=== PATIENT | male | born 1980 | race Caucasian/White ===

== ENCOUNTER 2017-08-20 22:13 | Emergency (ER) | payer MEDICAID, SELFPAY ==
[2017-08-20 22:14] VITALS: BP 151/109; PULSE 142; RESP 18; TEMP 36.9; O2SAT 100; BMI 25.0
--- NOTE | 2017-08-20 22:34 | ED.RN ---
PT LEFT BUILDING, PT HAD CONFUSION, WAS TEARFUL, AND CRYING THAT HE DIDN'T KNOW WHY HE WAS HERE. PT AMBULATED BACK INTO BUILDING.
== END 2017-08-20 22:26 | disposition left against medical advice (07) ==
LOC: ED 22:29
PROVIDERS: Emergency Provider Emergency Medicine
DX: R51 Headache (principal); K08.89 Other specified disorders of teeth and supporting structures

== ENCOUNTER 2017-08-23 14:20 | Emergency (ER) | payer MEDICAID, SELFPAY ==
[2017-08-23 14:20] VITALS: BP 127/93; PULSE 121; RESP 18; TEMP 37.5; O2SAT 97; BMI 25.9
--- NOTE | 2017-08-23 15:28 | ED.VISSUMM ---
- ER Visit Summary Date of Service: 08/23/17 Chief Complaint: Left upper teeth pain and facial swelling History of Present Illness: The patient is a 37 M who presents emergency part with left upper teeth pain and facial swelling. He states this started several days ago. He presented to the emergency department last week however lap because of delay. He denies fever, chills night sweats. He complains of blurred vision and purulent/pus draining from his eye. He denies double vision, loss of vision or photophobia. He denies pain with movement of his eye. He denies rhinorrhea. Denies earache or sore throat. He does complain of headache. Denies any neck pain or neck stiffness. He has no history rheumatic fever, murmur, SBE, IV drug use to be an immune suppressed. He denies any skin lesions. He recently relocated to the area for employment. He does have a physician or dentist in the area. He does admit to smoking and drinking. Denies drugs. Physical Examination: Vital signs remarkable for blood pressure 127/93 and heart rate 121. He appears uncomfortable. There is left-sided facial swelling over the left maxillary region. There is pain to palpation. Pupils equal round reactive. Extra muscles intact. Sclerae anicteric. Conjunctive is not injected. There is no drainage from the duct. There is no swelling to suggest a dacryocystitis. TMs are normal. Posterior pharynx without erythema XA. Uvula midline. He has significant dental caries. There is discomfort with tapping of the second left upper bicuspid and first left upper molar. There is no trismus. Trachea is midline. There is no stridor. Heart is regular without murmur, gallop or rub. S1 and S2 are normal. Lungs are clear to auscultation with good movement of air bilaterally. There are no skin lesions noted. There are no splinter hemorrhages noted. Test Results: None were obtained Emergency Department Course and Treatment: Dental referral, prescription for clindamycin, Naprosyn and [place]. He received doses of each in the department prior to discharge Treatment Plan: Outpatient follow-up with dentist Disposition: Discharge to home Impression: 1. Dental abscess 2. Dental caries involving the dentin and pulp 3. Sinus tachycardia documented on monitor This note was generated with [employer] software. It may contain incorrect words, spelling, and punctuation that were not noted in review of the chart prior to signing ED Disposition - Plan for ED Patient: Disposition: Home or Assisted Living Chief Complaint: Dental Instructions: ED Cavity Dental, ED Abscess Dental Prescriptions: Hydrocodone Bitart/Apap 5-325 [[place] 5MG-325MG] 1 tablet PO Q6H PRN PRN 3 Days #10 tablet PRN Reason: Pain Naproxen [Naprosyn] 500 mg PO BID #14 tab Clindamycin HCl [Cleocin] 300 mg PO Q6H #40 cap Referrals: Care Physician,No Primary [Primary Care Provider] - Additional Instructions: Prescription was electronically transmitted to [facility]
[2017-08-23] MEDS: HYDROcodone Bitartrate/Apap 5/325 Tablet PO (15:36)
[2017-08-23] MEDS: Clindamycin HCl 150 MG Capsule 300 MG PO (15:36)
--- NOTE | 2017-08-23 15:37 | ED.DCSUM_ITS ---
- ER Visit Summary Date of Service: 08/23/17 Chief Complaint: Left upper teeth pain and facial swelling History of Present Illness: The patient is a 37 M who presents emergency part with left upper teeth pain and facial swelling. He states this started several days ago. He presented to the emergency department last week however lap because of delay. He denies fever, chills night sweats. He complains of blurred vision and purulent/pus draining from his eye. He denies double vision , loss of vision or photophobia. He denies pain with movement of his eye. He denies rhinorrhea. Denies earache or sore throat. He does complain of headache. Denies any neck pain or neck stiffness. He has no history rheumatic fever, murmur, SBE, IV drug use to be an immune suppressed. He denies any skin lesions. He recently relocated to the area for employment. He does have a physician or dentist in the area. He does admit to smoking and drinking. Denies drugs. Physical Examination: Vital signs remarkable for blood pressure 127/93 and heart rate 121. He appears uncomfortable. There is left-sided facial swelling over the left maxillary region. There is pain to palpation. Pupils equal round reactive. Extra muscles intact. Sclerae anicteric. Conjunctive is not injected. There is no drainage from the duct. There is no swelling to suggest a dacryocystitis. TMs are normal. Posterior pharynx without erythema XA. Uvula midline. He has significant dental caries. There is discomfort with tapping of the second left upper bicuspid and first left upper molar. There is no trismus. Trachea is midline. There is no stridor. Heart is regular without murmur, gallop or rub. S1 and S2 are normal. Lungs are clear to auscultation with good movement of air bilaterally. There are no skin lesions noted. There are no splinter hemorrhages noted. Test Results: None were obtained Emergency Department Course and Treatment: Dental referral, prescription for clindamycin, Naprosyn and [place]. He received doses of each in the department prior to discharge Treatment Plan: Outpatient follow-up with dentist Disposition: Discharge to home Impression: 1. Dental abscess 2. Dental caries involving the dentin and pulp 3. Sinus tachycardia documented on monitor This note was generated with [employer] software. It may contain incorrect words, spelling, and punctuation that were not noted in review of the chart prior to signing ED Disposition - Plan for ED Patient: Disposition: Home or Assisted Living Chief Complaint: Dental Instructions: ED Cavity Dental, ED Abscess Dental Prescriptions: Hydrocodone Bitart/Apap 5-325 [[place] 5MG-325MG] 1 tablet PO Q6H PRN PRN 3 Days # 10 tablet PRN Reason: Pain Naproxen [Naprosyn] 500 mg PO BID #14 tab Clindamycin HCl [Cleocin] 300 mg PO Q6H #40 cap Referrals: Care Physician,No Primary [Primary Care Provider] - Additional Instructions: Prescription was electronically transmitted to [facility]
[2017-08-23 15:41] VITALS: PULSE 88; RESP 16
== END 2017-08-23 15:53 | disposition home or self-care (01) ==
PROVIDERS: Emergency Provider Emergency Medicine
DX: K04.7 Periapical abscess without sinus (principal); K02.9 Dental caries, unspecified; R00.0 Tachycardia, unspecified; F17.200 Nicotine dependence, unspecified, uncomplicated; K08.89 Other specified disorders of teeth and supporting structures
CPT/HCPCS: 99283

== ENCOUNTER 2017-08-24 07:36 | Emergency (ER) | payer MEDICAID, SELFPAY ==
[2017-08-24 07:37] VITALS: BP 149/103; PULSE 78; RESP 16; TEMP 36.5; O2SAT 100; BMI 25.7
--- NOTE | 2017-08-24 07:56 | RAD_ITS ---
STUDY: X-RAY - ACUTE ABDOMINAL SERIES REASON FOR EXAM: Male, 37 years old. Right-sided abdominal pain. TECHNIQUE: Single view of the chest. Supine, and erect view(s) of the abdomen were obtained. COMPARISON: None. FINDINGS: The lungs are clear and expanded. Normal size heart. Normal mediastinum and logan. Normal visualized pulmonary arteries. Normal visualized aortic arch and descending thoracic aorta. There is a moderate amount of colonic fecal material. Mild splenomegaly with calcified splenic granulomas. Mild hepatomegaly. Normal visualized osseous structures. RAD/Acute Abdomen Inc Chest IMPRESSION: A moderate amount of fecal material is seen in the colon. Mild splenomegaly with the calcified splenic granulomas. Hepatomegaly. Electronically Signed: Leonel Liu MD at 8:41 EDT Tel [phone], Service support ,
--- NOTE | 2017-08-24 09:03 | ED.DCSUM_ITS ---
- ER Visit Summary Date of Service: 08/24/17 Chief Complaint: Abdominal pain History of Present Illness: The patient is a 37 M who presents complaining of epigastric pain and spasm. Patient states he took naproxen and clindamycin at 6 AM this morning. Shortly after this he developed pain in the epigastric area. He states he did eat a granola bar with the medications. He has had these medications before with no problem. Patient has a history of 3 ventral hernia repairs. He states that he will intermittently feel a bulge above where his mesh is. Physical Examination: Vital signs are unremarkable. Head and neck examination is unremarkable. Heart is regular rate and rhythm. Lung sounds are clear. Abdomen is soft with focal tenderness over the epigastrium. There are no palpable hernias on exam. He has active bowel sounds. Test Results: Acute abdominal series reveals moderate fecal material in the colon. There is mild splenomegaly. Hepatomegaly is noted. Emergency Department Course and Treatment: Patient is given a GI cocktail. On repeat evaluation, patient reports mild improvement. He states he almost has cramping now as if he needs to have a bowel movement. He will be given prescriptions for Prilosec and Bentyl. He is instructed to eat with his medications. He will be referred to surgery for outpatient follow-up of this possible hernia. Treatment Plan: [] Disposition: Discharge Impression: Epigastric pain This note was generated with [employer] dictation software. It may contain incorrect words, spelling, and punctuation that were not noted in review of the chart prior to signing ED Disposition - Plan for ED Patient: Chief Complaint: Abd Pain Referrals: Care Physician,No Primary [Primary Care Provider] -
--- NOTE | 2017-08-24 09:04 | ED.DEP ---
ED Disposition - Plan for ED Patient: Disposition: Home or Assisted Living Chief Complaint: Abd Pain Instructions: ED Epigastric Pain [facility] Prescriptions: Dicyclomine HCl [Bentyl] 20 mg PO TIDAC #20 capsule Omeprazole [Prilosec] 20 mg PO DAILY #14 capsule Referrals: Kallie Farias MD [STAFF PHYSICIAN] - As Needed
[2017-08-24] MEDS: Famotidine 20 MG Tablet 40 MG PO (09:14)
[2017-08-24] MEDS: Dicyclomine 10 MG Capsule 20 MG PO (09:14)
== END 2017-08-24 09:16 | disposition home or self-care (01) ==
PROVIDERS: Emergency Provider Emergency Medicine
DX: R10.13 Epigastric pain (principal); R16.2 Hepatomegaly with splenomegaly, not elsewhere classified; K63.9 Disease of intestine, unspecified; G89.29 Other chronic pain; Z79.899 Other long term (current) drug therapy; F12.90 Cannabis use, unspecified, uncomplicated; Z72.0 Tobacco use
CPT/HCPCS: 74022

== ENCOUNTER 2017-08-24 14:55 | Emergency (ER) | payer MEDICAID, SELFPAY ==
[2017-08-24 14:56] VITALS: BP 125/84; PULSE 100; RESP 18; TEMP 37.1; O2SAT 100; BMI 25.7
--- NOTE | 2017-08-24 16:12 | ED.VISSUMM ---
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 Reports that after the initial dose he had epigastric abdominal pain. It worsened this morning approximately an hour and 10 minutes after taking a dose of clindamycin with a granola bar. States is been a constant waxing and waning pain since that time. He describes it as aching. Senna 10 worsening a 10 currently. Is worsened by leaning over. It is improved by straightening out. He has had nausea without vomiting. No diarrhea. His last problem was today. No melena or hematochezia. No dysuria or frequency. Physical Examination: Vitals: Stable. Afebrile. General: Well-nourished and well-developed. Head: Normocephalic atraumatic. Neck: Supple, no lymphadenopathy. No JVD. Nontender. Cardiovascular: Regular rate and rhythm. No murmurs. Respiratory: No respiratory distress. Clear to auscultation bilaterally. Abdominal: Soft, moderate epigastric tenderness to palpation, nondistended, normal bowel sounds. No guarding, rebound, or peritoneal signs. Back: Nontender. Extremities: Nontender, no edema. Skin: Normal color, no rash. Neurologic: Alert and oriented ?3. Cranial nerves II through XII are intact. Normal strength and sensation. Psych: Normal affect. Test Results: CBC is normal. Chem-7 is normal. LFTs are remarkable for an ALT of 182 and AST of 159. Lipase is normal. Emergency Department Course and Treatment: Patient had an IV placed. He was given a liter bolus normal saline. He was given Toradol and Zofran IV. He is resting comfortably. Treatment Plan: Patient will be discharged with Zofran. And instructed to switch from clindamycin to penicillin. [facility] in 1-2 days not improving. Disposition: To home in improved and stable condition. Impression: 1. Adverse reaction to clindamycin. 2. Elevated AST/ALT. 3. History of hepatitis C. This note was generated with [employer] software. It may contain incorrect words, spelling, and punctuation that were not noted in review of the chart prior to signing ED Disposition - Plan for ED Patient: Disposition: Home or Assisted Living Chief Complaint: Abd Pain Instructions: ED Drug React Adverse Other Prescriptions: Ondansetron [Zofran Odt] 4 mg PO Q8H PRN PRN #10 tablet PRN Reason: Nausea Penicillin V Potassium 500 mg PO 4X/DAY #40 tablet Referrals: Christi Manuel [NON-STAFF] - 1-2 Days if not improving
[2017-08-24] MEDS: 0.9% Normal Saline 1,000 ML 1000 ML IV (16:41)
[2017-08-24] MEDS: Ondansetron 4 MG/2 ML Vial IV (16:41)
[2017-08-24 16:56] LABS: Absolute Lymphocyte Count 1.19 X10^3/ul (0.83-4.51); Absolute Neutrophil Count 3.9 X10^3/uL (2.0-7.7); Basophil# 0.03 X10^3/uL; Basophil% 0.5 % (0-1); Eosinophil# 0.28 X10^3/uL; Eosinophils% 4.7 % (0-5); Hematocrit 43.4 % (40-54); Hemoglobin 15.2 g/dl (13.0-16.5); Lymphocyte # 1.19 X10^3/ul (4.0); Mean Corpuscular Hgb 33.3 pg (27.0-32.0); Mean Corpuscular Volume 95.2 fL (80-94); Mean Platelet Vol. 8.7 fl (6.2-12.0); Monocyte# 0.59 X10^3/uL; Monocyte% 9.9 % (0-10); Neutrophil # 3.85 X10^3/uL (2.7-7.7); Neutrophil % 64.9 % (47-70); POSITIVE COUNT NO; POSITIVE DIFFERENTIAL NO; POSITIVE MORPHOLOGY NO; Platelet Count 163 K/mm3 (150-450); RBC Distribution Width CV 13.7 % (11.6-14.6); RBC Distribution Width SD 47.7 fl (35.1-43.9); Red Blood Count 4.56 M/mm3 (4.6-6.2); White Blood Count 5.9 K/mm3 (4.4-11.0)
[2017-08-24 17:18] LABS: AST(SGOT) 159 U/L (15-37); Alanine Aminotransfer ALT/SGPT 182 U/L (16-61); Albumin, Serum 3.8 g/dL (3.2-5.0); Alkaline Phosphatase 51 U/L (45-117); Anion Gap 11 (5-15); BUN 7 mg/dL (7-18); BUN/Creat Ratio 8.3 RATIO (10-20); Bilirubin, Direct 0.17 mg/dL (0.00-0.30); Calcium,Total 8.5 mg/dL (8.5-10.1); Chloride 105 mmol/L (98-107); Creatinine, Serum 0.84 mg/dL (0.70-1.30); EST Glomerular Filtration Rate 109 mL/min (>60); Est Glom Filt Rate - Afr Amer 132 mL/min (>60); Estimated Creatinine Clearance 100.82 ml/min; Globulin 3.7 g/dL (2.2-4.2); Glucose 86 mg/dL (74-106); Lipase 201 U/L (73-393); Potassium 3.7 mmol/L (3.5-5.1); Protein, Total 7.5 g/dL (6.4-8.2); Sodium Level 143 mmol/L (136-145)
[2017-08-24] MEDS: Ketorolac 30 MG/ML Syringe IV (17:27)
[2017-08-24 17:52] VITALS: RESP 16
--- NOTE | 2017-08-24 17:53 | ED.RN ---
PT REFUSED TO LET THIS RN CHECK VITAL SIGNS. REVIEWED D/C INSTRUCTIONS, FOLLOW UP CARE, PRESCRIPTION, AND S/S THAT WOULD WARRANT A RETURN TO THE ED WITH PT. PT VERBALIZED AN UNDERSTANDING AND DENIES FURTHER QUESTIONS FOR THIS RN. PT SKIN P/W/D, RESP EVEN AND UNLABORED, PT A&O X 3, NO DISTRESS NOTED. PT AMBULATED OUT OF ED, GAIT STEADY.
== END 2017-08-24 17:54 | disposition home or self-care (01) ==
PROVIDERS: Emergency Provider Emergency Medicine
DX: R10.13 Epigastric pain (principal); R11.0 Nausea; R51 Headache; T36.8X5A Adverse effect of other systemic antibiotics, initial encounter; Y92.9 Unspecified place or not applicable; R74.0 Nonspecific elevation of levels of transaminase and lactic acid dehydrogenase [LDH]; Z86.19 Personal history of other infectious and parasitic diseases; K04.7 Periapical abscess without sinus; K57.30 Diverticulosis of large intestine without perforation or abscess without bleeding; F17.200 Nicotine dependence, unspecified, uncomplicated; Z79.899 Other long term (current) drug therapy; R16.2 Hepatomegaly with splenomegaly, not elsewhere classified; K63.9 Disease of intestine, unspecified; G89.29 Other chronic pain; F12.90 Cannabis use, unspecified, uncomplicated
CPT/HCPCS: 74022; 80048; 80076; 83690; 85025; 96361; 96374; 96375; 99283; J7030

== ENCOUNTER 2017-09-01 00:20 | Emergency (ER) | payer MEDICAID, SELFPAY ==
--- NOTE | 2017-09-01 00:20 | DT_ITS ---
This patient was seen during an EMR downtime August 30, 2017 - September 06, 2017. This patient may have a combination of paper and electronic documentation or all paper documentation. All documentation is viewable within the e-chart portion of [facility] for each patient visit.
[2017-09-04 07:24] LABS: Glucose 116 mg/dL (74-106)
[2017-09-04 07:25] LABS: Anion Gap 5 (5-15); BUN 7 mg/dL (7-18); BUN/Creat Ratio 9.1 RATIO (10-20); Calcium,Total 9.3 mg/dL (8.5-10.1); Chloride 101 mmol/L (98-107); Creatinine, Serum 0.77 mg/dL (0.70-1.30); EST Glomerular Filtration Rate 121 mL/min (>60); Est Glom Filt Rate - Afr Amer 147 mL/min (>60); Lipase 165 U/L (73-393); Sodium Level 136 mmol/L (136-145)
[2017-09-04 10:40] LABS: Basophil% 0.3 % (0-1); Eosinophils% 2.5 % (0-5); Hematocrit 46.3 % (40-54); Hemoglobin 16.8 g/dl (13.0-16.5); Mean Corp Hgb Conc 36.3 g/gl (32-36); Mean Corpuscular Volume 93.7 fL (80-94); Mean Platelet Vol. 8.8 fl (6.2-12.0); POSITIVE COUNT NO; POSITIVE DIFFERENTIAL NO; POSITIVE MORPHOLOGY NO; Platelet Count 130 K/mm3 (150-450); RBC Distribution Width CV 13.1 % (11.6-14.6); RBC Distribution Width SD 44.7 fl (35.1-43.9); Red Blood Count 4.94 M/mm3 (4.6-6.2); White Blood Count 9.6 K/mm3 (4.4-11.0)
[2017-09-04 10:41] LABS: Absolute Lymphocyte Count 1.53 X10^3/ul (0.83-4.51); Absolute Neutrophil Count 6.9 X10^3/uL (2.0-7.7); Basophil# 0.03 X10^3/uL; Eosinophil# 0.24 X10^3/uL; Lymphocyte # 1.53 X10^3/ul (4.0); Monocyte# 0.86 X10^3/uL
== END 2017-09-02 02:15 | disposition home or self-care (01) ==
LOC: ED 09-02 15:52
PROVIDERS: Emergency Provider Emergency Medicine
DX: R10.9 Unspecified abdominal pain (principal); Z87.19 Personal history of other diseases of the digestive system; Z59.0 Homelessness
CPT/HCPCS: 36415; 80048; 83690; 85025; 99282

== ENCOUNTER 2017-09-05 01:30 | Emergency (ER) | payer MEDICAID, SELFPAY ==
--- NOTE | 2017-09-05 01:30 | DT_ITS ---
This patient was seen during an EMR downtime August 30, 2017 - September 06, 2017. This patient may have a combination of paper and electronic documentation or all paper documentation. All documentation is viewable within the e-chart portion of [facility] for each patient visit.
[2017-09-07 09:51] LABS: Amphetamine Urine VISTA NEGATIVE (<1000 ng/mL); Barbiturate Urine VISTA NEGATIVE (< 200 ng/mL); Vista UDS pH Range 6
[2017-09-07 09:52] LABS: BUN 5 mg/dL (7-18); BUN/Creat Ratio 8.2 RATIO (10-20); Benzodiazepine Urine VISTA NEGATIVE (< 200 ng/mL); Cocaine Urine VISTA NEGATIVE (< 300 ng/mL); Creatinine, Serum 0.61 mg/dL (0.70-1.30); EST Glomerular Filtration Rate 158 mL/min (>60); Ecstacy Urine VISTA NEGATIVE (< 500 ng/mL); Est Glom Filt Rate - Afr Amer 191 mL/min (>60); Glucose 87 mg/dL (74-106); Methadone Urine VISTA NEGATIVE (< 300 ng/mL); PCP Urine VISTA NEGATIVE (< 25 ng/mL); THC Urine VISTA POSITIVE (< 50 ng/mL)
[2017-09-07 09:53] LABS: ALB/GLOB Ratio 1.2 RATIO (0.9-2.4); AST(SGOT) 166 U/L (15-37); Alanine Aminotransfer ALT/SGPT 244 U/L (16-61); Alkaline Phosphatase 45 U/L (45-117); Anion Gap 7 (5-15); Calcium,Total 8.5 mg/dL (8.5-10.1); Chloride 110 mmol/L (98-107); Globulin 3.3 g/dL (2.2-4.2); Lipase 332 U/L (73-393); Potassium 3.9 mmol/L (3.5-5.1); Protein, Total 7.3 g/dL (6.4-8.2); Sodium Level 143 mmol/L (136-145)
[2017-09-07 15:28] LABS: Absolute Lymphocyte Count 1.67 X10^3/ul (0.83-4.51); Absolute Neutrophil Count 3.2 X10^3/uL (2.0-7.7); Basophil# 0.03 X10^3/uL; Basophil% 0.5 % (0-1); Eosinophil# 0.19 X10^3/uL; Eosinophils% 3.4 % (0-5); Hematocrit 44.8 % (40-54); Hemoglobin 15.8 g/dl (13.0-16.5); Lymphocyte # 1.67 X10^3/ul (4.0); Lymphocyte % 29.7 % (19-41); Mean Corp Hgb Conc 35.3 g/gl (32-36); Mean Corpuscular Hgb 33.8 pg (27.0-32.0); Mean Corpuscular Volume 95.7 fL (80-94); Mean Platelet Vol. 8.9 fl (6.2-12.0); Monocyte# 0.51 X10^3/uL; Monocyte% 9.1 % (0-10); Neutrophil # 3.23 X10^3/uL (2.7-7.7); Neutrophil % 57.3 % (47-70); POSITIVE COUNT NO; POSITIVE DIFFERENTIAL NO; POSITIVE MORPHOLOGY NO; Platelet Count 143 K/mm3 (150-450); RBC Distribution Width CV 13.4 % (11.6-14.6); RBC Distribution Width SD 46.8 fl (35.1-43.9); Red Blood Count 4.68 M/mm3 (4.6-6.2); White Blood Count 5.6 K/mm3 (4.4-11.0)
== END 2017-09-05 08:35 | disposition home or self-care (01) ==
PROVIDERS: Emergency Provider Emergency Medicine; Family Provider Nurse Practitioner Family; PCP Nurse Practitioner Family
DX: R10.30 Lower abdominal pain, unspecified (principal); G89.29 Other chronic pain; K74.60 Unspecified cirrhosis of liver; Z87.19 Personal history of other diseases of the digestive system; Z86.19 Personal history of other infectious and parasitic diseases; F17.200 Nicotine dependence, unspecified, uncomplicated
CPT/HCPCS: 36415; 80053; 80307; 80320; 83690; 85025; 99283; J7030; A4216; G0480

== ENCOUNTER 2017-11-12 19:41 | Emergency (ER) | payer MEDICAID, SELFPAY ==
[2017-11-12 19:42] VITALS: BP 141/100; PULSE 123; RESP 16; TEMP 36.9; O2SAT 94; BMI 25.7
--- NOTE | 2017-11-12 20:28 | ED.VISSUMM ---
- ER Visit Summary Date of Service: 11/12/17 Chief Complaint: Alcohol intoxication History of Present Illness: The patient is a 37 M who presents with self admittance 14 beers tonight. He wants help. He is not going through withdrawal. He admits to being intoxicated and he appears so. He has no physical complaints. Physical Examination: Not appear in acute distress. Appears intoxicated slurring speech. Moist mucous membranes, no obvious facial deformity No C-spine tenderness supple neck. Regular rate and rhythm without any obvious murmurs Clear lungs bilaterally speaking in full sentences without any obvious respiratory distress Abdomen soft and nontender no guarding or rebound Moves all extremities without any difficulty or pain. Skin does not show any obvious rashes or lesions, no trauma. Alert oriented ?3 again slurred speech but no focal deficit. Emergency Department Course and Treatment: Patient will be observed in the emergency department, we will check his alcohol level, when he is sober he will be reevaluated about detox The oncoming emergency physician will overtake the care of the patient. Impression: Alcohol intoxication This note was generated with [employer] dictation software. It may contain incorrect words, spelling, and punctuation that were not noted in review of the chart prior to signing ED Disposition - Plan for ED Patient: Chief Complaint: ETOH Intox Referrals: Celina Mandujano NP-C [Primary Care Provider] -
[2017-11-12 20:52] LABS: Absolute Lymphocyte Count 2.82 X10^3/ul (0.83-4.51); Absolute Neutrophil Count 3.8 X10^3/uL (2.0-7.7); Basophil# 0.06 X10^3/uL; Basophil% 0.8 % (0-1); Eosinophil# 0.22 X10^3/uL; Eosinophils% 3.1 % (0-5); Hematocrit 46.1 % (40-54); Hemoglobin 16.1 g/dl (13.0-16.5); Lymphocyte # 2.82 X10^3/ul (4.0); Lymphocyte % 39.2 % (19-41); Mean Corp Hgb Conc 34.9 g/gl (32-36); Mean Corpuscular Hgb 33.7 pg (27.0-32.0); Mean Corpuscular Volume 96.4 fL (80-94); Mean Platelet Vol. 8.4 fl (6.2-12.0); Monocyte# 0.32 X10^3/uL; Monocyte% 4.5 % (0-10); Neutrophil # 3.77 X10^3/uL (2.7-7.7); Neutrophil % 52.4 % (47-70); Platelet Count 148 K/mm3 (150-450); RBC Distribution Width CV 13.3 % (11.6-14.6); RBC Distribution Width SD 46.9 fl (35.1-43.9); Red Blood Count 4.78 M/mm3 (4.6-6.2); White Blood Count 7.2 K/mm3 (4.4-11.0)
[2017-11-12 20:53] LABS: Differential Indicated SCAN CRITERIA MET; POSITIVE COUNT NO; POSITIVE DIFFERENTIAL NO; POSITIVE MORPHOLOGY YES
[2017-11-12] MEDS: DiphenhydrAMINE 50 MG/ML Syringe IM (21:05)
[2017-11-12] MEDS: Haloperidol Lactate 5 MG/ML Vial 10 MG IM (21:05)
[2017-11-12 21:06] VITALS: BP 140/97; PULSE 105; RESP 18; O2SAT 98
[2017-11-12 21:22] LABS: Anion Gap 9 (5-15); BUN 6 mg/dL (7-18); BUN/Creat Ratio 7.5 RATIO (10-20); Calcium,Total 8.6 mg/dL (8.5-10.1); Chloride 107 mmol/L (98-107); EST Glomerular Filtration Rate 115 mL/min (>60); Est Glom Filt Rate - Afr Amer 139 mL/min (>60); Estimated Creatinine Clearance 105.86 ml/min; Glucose 110 mg/dL (74-106); Potassium 3.6 mmol/L (3.5-5.1); Sodium Level 143 mmol/L (136-145)
[2017-11-12 21:30] LABS: Amphetamine Urine VISTA NEGATIVE (<1000 ng/mL); Barbiturate Urine VISTA NEGATIVE (< 200 ng/mL); Benzodiazepine Urine VISTA NEGATIVE (< 200 ng/mL); Cocaine Urine VISTA NEGATIVE (< 300 ng/mL); Ecstacy Urine VISTA NEGATIVE (< 500 ng/mL); Methadone Urine VISTA NEGATIVE (< 300 ng/mL); PCP Urine VISTA NEGATIVE (< 25 ng/mL); THC Urine VISTA POSITIVE (< 50 ng/mL); Vista UDS pH Range 5
[2017-11-12 22:59] VITALS: PULSE 80; RESP 16
[2017-11-13 00:36] VITALS: PULSE 78; RESP 18
[2017-11-13 05:19] VITALS: BP 124/72; PULSE 85; RESP 15
--- NOTE | 2017-11-13 05:22 | ED.VISSUMM ---
- ER Visit Summary Date of Service: 11/13/17 Chief Complaint: [] History of Present Illness: The patient is a 37 M [] Physical Examination: [] Test Results: [] Emergency Department Course and Treatment: [] Treatment Plan: [] Disposition: [] Impression: [] This note was generated with [employer] dictation software. It may contain incorrect words, spelling, and punctuation that were not noted in review of the chart prior to signing ED Disposition - Plan for ED Patient: Disposition: Home or Assisted Living Chief Complaint: ETOH Intox Instructions: ED Alcohol Intoxication Referrals: Celina Mandujano, ROSITA-C [Primary Care Provider] - Counseling,Center [GROUP OF PHYSICIANS] -
[2017-11-13 07:05] VITALS: PULSE 75; RESP 15; O2SAT 96
== END 2017-11-13 07:06 | disposition home or self-care (01) ==
PROVIDERS: Emergency Provider Emergency Medicine; Family Provider Nurse Practitioner Family; PCP Nurse Practitioner Family
DX: F10.129 Alcohol abuse with intoxication, unspecified (principal); Y90.9 Presence of alcohol in blood, level not specified; Z72.0 Tobacco use; Z86.19 Personal history of other infectious and parasitic diseases
CPT/HCPCS: 80048; 80307; 80320; 85025; 99281; G0480

== ENCOUNTER 2017-11-15 15:57 | Observation (INO) | payer MEDICAID, SELFPAY ==
[2017-11-15 16:12] VITALS: BMI 26.2
[2017-11-15 16:18] VITALS: BP 128/76; PULSE 88; RESP 18; TEMP 37.3; O2SAT 95
--- NOTE | 2017-11-15 16:36 | PCM.HP.STD ---
<Essie Gonzalez - Last Filed: 11/15/17 17:14> Problem List (1) Chronic abdominal pain Status: Chronic (2) History of positive PPD Status: Chronic (3) Chronic pain syndrome Status: Chronic (4) Nicotine dependence Status: Chronic (5) Inflammatory bowel disease Status: Chronic (6) Asthma Status: Chronic History of Present Illness Date of Admission: 11/15/17 Chief Complaint: Alcohol withdrawal The patient is a 37 year old M who presents through [facility] for alcohol withdrawal. Patient states he drinks 12-18 beers per day which has been ongoing since February when he was released from long term. He also uses marijuana, 2 joints' daily. He denies other substance use. Patient states he has been in treatment approximately 7 times for various substance use. Patient with previous opioid abuse, denies recent use. Patient states he spent 3 years in long term due to incident related to alcohol use. He states he presents today due to fear of dying or hurting someone else. He states he has frequent blackouts while using alcohol. He currently complains of anxiety, dry mouth, tremors, diarrhea. He has a past medical history of chronic abdominal pain, chronic hepatitis C, tobacco dependence, asthma, ventral hernia repair ?3. Past Medical History Past Medical History (Chronic Problems): Chronic Problems Chronic abdominal pain (Chronic) History of positive PPD (Chronic) Chronic pain syndrome (Chronic) Nicotine dependence (Chronic) Inflammatory bowel disease (Chronic) Asthma (Chronic) Allergies No Known Allergies Allergy (Verified 11/12/17 19:42) Home Medications: Ambulatory Orders Medication Instructions Recorded NK [NK] 11/12/17 Surgical History: adenoidectomy, - - Ventral hernia repair x3 Psychiatric History: No pertinent psych hx Lives: Roommate Smoking Status: Current every day smoker Tobacco Use: Cigarettes - Pack and half per day Alcohol: Heavy Drugs: Marijuana - *Family History Maternal History Items: Unknown Paternal History Items: Unknown Review of Systems Constitutional: Reports: Malaise. Denies: Chills, Fever HEENT: Denies: Head Aches, Sinus Congestion, Sinus Drainage Cardiovascular: Denies: Chest Pain, Palpitations, Syncope Respiratory: Denies: Cough, Shortness of breath at rest, Sputum production Gastrointestinal: Reports: Diarrhea, Nausea. Denies: Abdominal Pain, Vomiting Genitourinary: Denies: Dysuria Musculoskeletal: Denies: Joint Pain, Joint Tenderness Skin: Denies: Rash, Wounds Neurological: Denies: Numbness, Tingling, Focal weakness Psychiatric: Reports: Anxiety. Denies: Depression, Homicidal Ideations, Suicidal Ideations Hematologic/ Lymphatic: Denies: Easy Bruising, Easy Bleeding VTE Information - Inpt Only VTE Present on Admission: No VTE Mechan Device Prophylaxis: None VTE Pharm Prophylaxis ordered?: No Reason prophylaxis not ordered:: Treatment Not Indicated - Physical Exam General: Alert, Oriented x3, Cooperative HEENT: Atraumatic, PERRLA, EOMI, Normocephalic Neck: Supple, No JVD, Negative Carotid Bruits Lungs: Clear to auscultation, Normal air movement Cardiovascular: Regular rate, Regular Rhythm, Normal S1, Normal S2, No murmurs Abdomen: Bowel Sounds Present, Soft, Non Tender, Non-Distended Extremities: No clubbing, No cyanosis, No edema, Capillary Refill Less than 3 Seconds Skin: No rashes, No breakdown Musculoskeletal: No Tenderness to Palpation of Joints or Extremities Neurological: Cranial nerves II-XII grossly intact, Neuro grossly intact Psych/Mental Status: Anxious Vital Signs Temp Pulse Resp BP Pulse Ox 99.2 F H 88 18 128/76 H 95 11/15/17 16:18 11/15/17 16:18 11/15/17 16:18 11/15/17 16:18 11/15/17 16:18 Oxygen Delivery Method Room Air Weight: 152 lb 8.958 oz Body Mass Index (BMI) 26.2 Assessment/Plan 1. Acute alcohol withdrawal on chronic alcohol abuse-medical stabilization per protocol. CIWA. Thiamine, folic acid, multivitamin supplementation. Patient wishes to attend residential treatment on discharge from hospital per [facility] arrangement. 2. History of polysubstance abuse-obtain urine tox screen. Admits to marijuana use. Denies other substance use. 3. Chronic hepatitis C-check CMP. 4. History of ventral hernia repair ?3 5. Tobacco dependence-encourage smoking cessation. Nicotine gum per patient request. DVT prophylaxis-not indicated, low risk. This patient was seen by ANGELI Felton under the supervision of Dr. Wilhelm. <Irina Wilhelm - Last Filed: 11/15/17 17:29> History of Present Illness The patient is a 37 year old M [] Past Medical History Allergies No Known Allergies Allergy (Verified 11/12/17 19:42) - Physical Exam Vital Signs Temp Pulse Resp BP Pulse Ox 99.2 F H 88 16 128/76 H 95 11/15/17 17:01 11/15/17 17:01 11/15/17 17:01 11/15/17 17:01 11/15/17 16:18 Oxygen Delivery Method Room Air Weight: 69.2 kg Body Mass Index (BMI) 26.2 Laboratory Tests Past 24 Hrs 11/15/17 11/15/17 16:59 16:59 WBC Pending RBC Pending Hgb Pending Hct Pending MCV Pending MCH Pending MCHC Pending RDW Pending RDW Differential Pending Plt Count Pending Neut % (Auto) Pending Absolute Neuts (auto) Pending Total Counted Pending Sodium Pending Potassium Pending Chloride Pending Carbon Dioxide Pending Anion Gap Pending BUN Pending Creatinine Pending Est GFR (MDRD) Af Amer Pending Est GFR (MDRD) Non-Af Pending BUN/Creatinine Ratio Pending Glucose Pending Calcium Pending Total Bilirubin Pending AST Pending ALT Pending Alkaline Phosphatase Pending Total Protein Pending Albumin Pending Assessment/Plan Patient was seen and examined independently. I agree with the above history, physical exam and assessment and plan as detailed by nurse practitioner Essie Gonzalez. Recently a 37-year-old male with past medical history of substance abuse, quit using heroin and has been using only alcohol, currently in detox for heroin was in with complaints of alcohol withdrawal significant for diarrhea, tremors, nausea. He was recently admitted for pancreatitis in [facility]. Has history of liver failure and states that his liver numbers are high. Last drank alcohol this morning. At time of being examined, he denies any dizziness or chest pain no palpitations of fever or chills. Has had 4 bowel movements today, he is usually constipated. Denies abdominal discomfort. No dark urine or jaundice PMHX: Polysubstance use, elevated liver enzymes related to alcoholic liver disease, recent history of pancreatitis, diverticulosis(right sided) PSHx: significant for ventral hernia ?3 FHX: No pertinent history SHX: Alcohol++, smoking cig, no IV drug use now Physical exam: Vitals appears stable General: Patient is alert oriented ?3, appears comfortable, able to answer all questions, not pale, no jaundice, no distress seen CVS: Heart sounds 1 and 2 present, no murmurs Respiratory: Clinically clear to auscultation Abdomen: Bowel sounds are present and normal, soft, nontender, no palpable organs Extremities: No edema FLOOR COVERING LAYER: Alert and oriented ?3, Cardona 5/5 in all extremities, normal tone, no tremors seen A/p: 1. Acute alcohol withdrawal 2. Polysubstance use disorder 3. Recent pancreatitis related to alcohol 4. Chronic Hepatitis C Labs- CBCD, CMP, urine drug screen Alcohol withdrawal with [facility] protocol Continue to monitor per [place] protocol Code Visit Inpatient E&M: 94683 Init Hosp L2
[2017-11-15] MEDS: Methocarbamol 750 MG Tablet PO (17:00)
[2017-11-15] MEDS: LORazepam 1 MG Tablet PO ×2 (17:00→20:15)
[2017-11-15 17:01] VITALS: BP 128/76; PULSE 88; RESP 16; TEMP 37.3
[2017-11-15 17:29] LABS: Absolute Lymphocyte Count 1.47 X10^3/ul (0.83-4.51); Basophil# 0.03 X10^3/uL; Basophil% 0.6 % (0-1); Eosinophil# 0.14 X10^3/uL; Eosinophils% 2.8 % (0-5); Hematocrit 43.1 % (40-54); Hemoglobin 14.8 g/dl (13.0-16.5); Lymphocyte # 1.47 X10^3/ul (4.0); Lymphocyte % 29.3 % (19-41); Mean Corp Hgb Conc 34.3 g/gl (32-36); Mean Platelet Vol. 8.6 fl (6.2-12.0); Neutrophil # 2.97 X10^3/uL (2.7-7.7); Neutrophil % 59.3 % (47-70); Platelet Count 117 K/mm3 (150-450); RBC Distribution Width CV 13.3 % (11.6-14.6); RBC Distribution Width SD 46.7 fl (35.1-43.9); Red Blood Count 4.49 M/mm3 (4.6-6.2)
[2017-11-15 17:39] LABS: POSITIVE COUNT NO; POSITIVE DIFFERENTIAL NO; POSITIVE MORPHOLOGY NO
[2017-11-15 18:04] LABS: ALB/GLOB Ratio 1.1 RATIO (0.9-2.4); AST(SGOT) 176 U/L (15-37); Alanine Aminotransfer ALT/SGPT 161 U/L (16-61); Albumin, Serum 3.9 g/dL (3.2-5.0); Alkaline Phosphatase 46 U/L (45-117); Anion Gap 12 (5-15); BUN 6 mg/dL (7-18); BUN/Creat Ratio 9.4 RATIO (10-20); Calcium,Total 8.5 mg/dL (8.5-10.1); Chloride 107 mmol/L (98-107); Creatinine, Serum 0.64 mg/dL (0.70-1.30); EST Glomerular Filtration Rate 149 mL/min (>60); Est Glom Filt Rate - Afr Amer 180 mL/min (>60); Estimated Creatinine Clearance 132.33 ml/min; Globulin 3.5 g/dL (2.2-4.2); Glucose 71 mg/dL (74-106); Protein, Total 7.4 g/dL (6.4-8.2); Sodium Level 144 mmol/L (136-145)
[2017-11-15] MEDS: Nicotine Polacrilex 2 MG GUM PO ×2 (18:25→20:15)
[2017-11-15 20:05] VITALS: BP 130/81; PULSE 91; RESP 20; TEMP 37.2
[2017-11-15] MEDS: hydrOXYzine PAM 25 MG Capsule 50 MG PO (20:14)
[2017-11-15 21:11] LABS: Amphetamine Urine VISTA NEGATIVE (<1000 ng/mL); Barbiturate Urine VISTA NEGATIVE (< 200 ng/mL); Benzodiazepine Urine VISTA NEGATIVE (< 200 ng/mL); Cocaine Urine VISTA NEGATIVE (< 300 ng/mL); Ecstacy Urine VISTA NEGATIVE (< 500 ng/mL); Methadone Urine VISTA NEGATIVE (< 300 ng/mL); PCP Urine VISTA NEGATIVE (< 25 ng/mL); THC Urine VISTA POSITIVE (< 50 ng/mL); Vista UDS pH Range 5
[2017-11-15 23:56] VITALS: BP 123/79; PULSE 63; RESP 16; TEMP 37.1
[2017-11-16] MEDS: Zolpidem Tartrate 5 MG Tablet PO
[2017-11-16] MEDS: LORazepam 1 MG Tablet PO ×6 (00:01→23:28)
[2017-11-16 04:24] VITALS: BP 131/79; PULSE 58; RESP 16; TEMP 36.8
--- NOTE | 2017-11-16 07:45 | PCM.PN.HOSP ---
Vitals/I&O's: Vital Signs Temp Pulse Resp BP Pulse Ox 98.3 F 58 L 16 131/79 H 95 11/16/17 04:24 11/16/17 04:24 11/16/17 04:24 11/16/17 04:24 11/15/17 16:18 Oxygen Delivery Method Room Air Weight: 69.2 kg Body Mass Index (BMI) 26.2 Intake and Output for Last 24 Hours 11/14/17 11/15/17 11/16/17 23:59 23:59 23:59 Intake Total 1500 / 1500 Balance 1500 / 1500 Laboratory Results 11/15/17 16:59: WBC 5.0, RBC 4.49 L, Hgb 14.8, Hct 43.1, MCV 96.0 H, MCH 33.0 H, MCHC 34.3, RDW 13.3, RDW Differential 46.7 H, Plt Count 117 L, MPV 8.6, Immature Gran % (Auto) 0.000, Neut % (Auto) 59.3, Lymph % (Auto) 29.3, Pine % (Auto) 8.0, Eos % (Auto) 2.8, Baso % (Auto) 0.6, Absolute Neuts (auto) 3.0, Absolute Lymphs (auto) 1.47, Total Counted Not Reportable 11/15/17 16:59: Sodium 144, Potassium 4.0, Chloride 107, Carbon Dioxide 25.0, Anion Gap 12, BUN 6 L, Creatinine 0.64 L, Estim Creat Clear Calc 132.33, Est GFR (MDRD) Af Amer 180, Est GFR (MDRD) Non-Af 149, BUN/Creatinine Ratio 9.4 L, Glucose 71 L, Calcium 8.5, Total Bilirubin 0.20, AST 176 H, ALT 161 H, Alkaline Phosphatase 46, Total Protein 7.4, Albumin 3.9, Globulin 3.5, Albumin/Globulin Ratio 1.1 11/15/17 : Urine Opiates Screen NEGATIVE, Urine Methadone Screen NEGATIVE, Ur Barbiturates Screen NEGATIVE, Ur Phencyclidine Scrn NEGATIVE, Ur Amphetamines Screen NEGATIVE, U Methamphetamin-MDMA NEGATIVE, U Benzodiazepines Scrn NEGATIVE, Urine Cocaine Screen NEGATIVE, U Cannabinoids Screen POSITIVE H, Ur Drug Screen Comment Current Medications Clonidine (Catapres) 0.1 mg PO Q2H PRN PRN PRN Reason: hot/cold sweats Dicyclomine HCl (Bentyl) 20 mg PO Q6H PRN PRN PRN Reason: abdominal discomfort Folic [facility] (Folic Acid) [facility] Hydroxyzine Pamoate (Vistaril Pamoate Capsule) 50 mg PO Q6H PRN PRN PRN Reason: Mild Anxiety (score 1/3) Last Admin: 11/15/17 20:14 Dose: 50 mg Lorazepam (Ativan) 1 mg PO Q4H [facility] PRN Reason: Taper Stop: 11/18/17 20:29 Last Admin: 11/16/17 04:25 Dose: 1 mg Magnesium Hydroxide (Milk Of Magnesia) 30 ml PO DAILY PRN PRN PRN Reason: Constipation Methocarbamol (Methocarbamol) 750 mg PO Q6H PRN PRN PRN Reason: Muscle Aches Last Admin: 11/15/17 17:00 Dose: 750 mg Multivitamins (Multivitamin) [facility] Nicotine (Nicoderm Cq (Pbkc)) 21 mg TRANSDERM. DAILY [facility] Last Admin: 11/15/17 18:25 Dose: 21 mg Nicotine Polacrilex (Rugby Nicotine (Bkc)) 2 mg PO Q2H PRN PRN PRN Reason: SMOKING CESSATION Last Admin: 11/15/17 20:15 Dose: 2 mg Thiamine HCl (Vitamin B1) [facility] Medical Necessity - Tobacco Use Smoking Status: Current every day smoker Tobacco Use: Cigarettes
[2017-11-16] MEDS: Thiamine Hydrochloride 100 MG Tablet PO (08:52)
[2017-11-16] MEDS: Multivitamins,Therapeutic Tablet 1 TABLET PO (08:52)
[2017-11-16] MEDS: Folic Acid 1 MG Tablet PO (08:52)
[2017-11-16] MEDS: Methocarbamol 750 MG Tablet PO ×2 (09:12→18:24)
[2017-11-16] MEDS: Dicyclomine 10 MG Capsule 20 MG PO ×2 (09:12→18:24)
[2017-11-16] MEDS: cloNIDine HCl 0.1 MG Tablet PO ×4 (09:12→22:45)
[2017-11-16 10:00] VITALS: BP 126/87; PULSE 64; RESP 18; TEMP 36.9
--- NOTE | 2017-11-16 12:51 | CHAPLAIN ---
Type of Pastoral Visit _x__ Initial Visit ___ Follow-up Visit ___ On-call Visit ___ General Patient Visit ___ Spiritual Assessment ___ Family Conference ___ Bereavement ___ Rapid Response ___ Code Blue ___ Other (describe below) Pastoral Care Referral From _x__ Patient ___ Family ___ Nurse ___ Physician ___ Entry Level Civil Engineer ___ [employer] Software Developer ___ Other (describe below) Sacrament/Intervention _x__ Active listening ___ Anointing ___ Methodist ___ Bereavement ___ Communion _x__ Vianey exploration ___ _x__ Life review _x__ Prayer ___ Reconciliation ___ Sacrament of Sick _x__ Supportive presence ___ Wedding ___ Other (describe below) Pastoral Comments patient give his life story and revelation of wounded spirit over years of his life; pt is facing life alone without family support; pt has studied Bible and is very knowledgeable on spiritual matters; pt is very interested in going to rehab and getting life help; pt is talkative and illustrates an understanding of who he is and what he is facing in alcohol addiction; pt has great interest in spiritual matters and welcomes support and prayers of transitional living specialist;
--- NOTE | 2017-11-16 13:23 | PCM.PROGNOTE ---
<Essie Gonzalez - Last Filed: 11/16/17 13:25> Subjective: Patient seen and examined. States he did fairly well overnight. Denies nausea, vomiting, diarrhea. Complains of feeling fidgety. Denies other significant withdrawal symptoms. - Physical Exam General: Alert, Oriented x3, Cooperative HEENT: Atraumatic, PERRLA, EOMI, Normocephalic Neck: Supple, No JVD, Negative Carotid Bruits Lungs: Clear to auscultation, Normal air movement Cardiovascular: Regular rate, Regular Rhythm, Normal S1, Normal S2, No murmurs Abdomen: Bowel Sounds Present, Soft, Non Tender, Non-Distended Extremities: No clubbing, No cyanosis, No edema, Capillary Refill Less than 3 Seconds Skin: No rashes, No breakdown Musculoskeletal: No Tenderness to Palpation of Joints or Extremities Neurological: Cranial nerves II-XII grossly intact, Neuro grossly intact Psych/Mental Status: Normal Affect, Appropriate Vital Signs Temp Pulse Resp BP Pulse Ox 98.5 F 64 18 126/87 H 95 11/16/17 10:00 11/16/17 10:00 11/16/17 10:00 11/16/17 10:00 11/15/17 16:18 Oxygen Delivery Method Room Air Weight: 152 lb 8.958 oz Body Mass Index (BMI) 26.2 Intake and Output for Last 24 Hours 11/14/17 11/15/17 11/16/17 23:59 23:59 23:59 Intake Total 1500 / 1500 Balance 1500 / 1500 Laboratory Tests Past 24 Hrs 11/15/17 11/15/17 11/15/17 16:59 16:59 Unknown WBC 5.0 RBC 4.49 L Hgb 14.8 Hct 43.1 MCV 96.0 H MCH 33.0 H MCHC 34.3 RDW 13.3 RDW Differential 46.7 H Plt Count 117 L MPV 8.6 Immature Gran % (Auto) 0.000 Neut % (Auto) 59.3 Lymph % (Auto) 29.3 [place] % (Auto) 8.0 Eos % (Auto) 2.8 Baso % (Auto) 0.6 Absolute Neuts (auto) 3.0 Absolute Lymphs (auto) 1.47 Total Counted Not Reportable Sodium 144 Potassium 4.0 Chloride 107 Carbon Dioxide 25.0 Anion Gap 12 BUN 6 L Creatinine 0.64 L Estim Creat Clear Calc 132.33 Est GFR (MDRD) Af Amer 180 Est GFR (MDRD) Non-Af 149 BUN/Creatinine Ratio 9.4 L Glucose 71 L Calcium 8.5 Total Bilirubin 0.20 AST 176 H ALT 161 H Alkaline Phosphatase 46 Total Protein 7.4 Albumin 3.9 Globulin 3.5 Albumin/Globulin Ratio 1.1 Urine Opiates Screen NEGATIVE Urine Methadone Screen NEGATIVE Ur Barbiturates Screen NEGATIVE Ur Phencyclidine Scrn NEGATIVE Ur Amphetamines Screen NEGATIVE U Methamphetamin-MDMA NEGATIVE U Benzodiazepines Scrn NEGATIVE Urine Cocaine Screen NEGATIVE U Cannabinoids Screen POSITIVE H Ur Drug Screen Comment Medical Necessity - Tobacco Use Smoking Status: Current every day smoker Tobacco Use: Cigarettes Assessment/Plan 1. Acute alcohol withdrawal on chronic alcohol abuse-medical stabilization per protocol. CIWA. Thiamine, folic acid, multivitamin supplementation. Patient wishes to attend residential treatment on discharge from hospital per [facility] arrangement. 2. History of polysubstance abuse-urine tox screen positive for cannabinoids. Negative for other substances. 3. Chronic hepatitis C-AST/ALT stable compared to previous labs. 4. History of ventral hernia repair ?3 5. Tobacco dependence-encourage smoking cessation. Nicotine gum per patient request. DVT prophylaxis-not indicated, low risk. This patient was seen by ANGELI Felton under the supervision of Dr. Wilhelm. <Irina Wilhelm - Last Filed: 11/16/17 14:24> - Physical Exam Vital Signs Temp Pulse Resp BP Pulse Ox 98.5 F 64 18 126/87 H 95 11/16/17 10:00 11/16/17 10:00 11/16/17 10:00 11/16/17 10:00 11/15/17 16:18 Oxygen Delivery Method Room Air Weight: 69.2 kg Body Mass Index (BMI) 26.2 Intake and Output for Last 24 Hours 11/14/17 11/15/17 11/16/17 23:59 23:59 23:59 Intake Total 1500 / 1500 Balance 1500 / 1500 Laboratory Tests Past 24 Hrs 11/15/17 11/15/17 11/15/17 16:59 16:59 Unknown WBC 5.0 RBC 4.49 L Hgb 14.8 Hct 43.1 MCV 96.0 H MCH 33.0 H MCHC 34.3 RDW 13.3 RDW Differential 46.7 H Plt Count 117 L MPV 8.6 Immature Gran % (Auto) 0.000 Neut % (Auto) 59.3 Lymph % (Auto) 29.3 [place] % (Auto) 8.0 Eos % (Auto) 2.8 Baso % (Auto) 0.6 Absolute Neuts (auto) 3.0 Absolute Lymphs (auto) 1.47 Total Counted Not Reportable Sodium 144 Potassium 4.0 Chloride 107 Carbon Dioxide 25.0 Anion Gap 12 BUN 6 L Creatinine 0.64 L Estim Creat Clear Calc 132.33 Est GFR (MDRD) Af Amer 180 Est GFR (MDRD) Non-Af 149 BUN/Creatinine Ratio 9.4 L Glucose 71 L Calcium 8.5 Total Bilirubin 0.20 AST 176 H ALT 161 H Alkaline Phosphatase 46 Total Protein 7.4 Albumin 3.9 Globulin 3.5 Albumin/Globulin Ratio 1.1 Urine Opiates Screen NEGATIVE Urine Methadone Screen NEGATIVE Ur Barbiturates Screen NEGATIVE Ur Phencyclidine Scrn NEGATIVE Ur Amphetamines Screen NEGATIVE U Methamphetamin-MDMA NEGATIVE U Benzodiazepines Scrn NEGATIVE Urine Cocaine Screen NEGATIVE U Cannabinoids Screen POSITIVE H Ur Drug Screen Comment Assessment/Plan Patient was seen and examined. I agree with interval history and physical exam and assessment and plan as documented by Essie Gonzalez. Patient denies any new complaints. Slept well. His alcohol withdrawal symptoms are well controlled with the current protocol Vitals reviewed, stable Labs reviewed We will continue to monitor per protocol Code Visit Inpatient E&M: 02973 Subs Hosp L2
[2017-11-16 14:00] VITALS: BP 119/83; PULSE 62; RESP 16; TEMP 37.1
[2017-11-16] MEDS: hydrOXYzine PAM 25 MG Capsule 50 MG PO ×2 (14:08→21:59)
[2017-11-16 18:00] VITALS: BP 120/84; PULSE 61; RESP 16; TEMP 36.8
[2017-11-16] MEDS: busPIRone 5 MG Tablet 10 MG PO (22:45)
[2017-11-16 23:35] VITALS: BP 131/78; PULSE 53; RESP 18; TEMP 36.9
[2017-11-17] MEDS: Ibuprofen 600 MG Tablet PO (00:11)
[2017-11-17] MEDS: Zolpidem Tartrate 5 MG Tablet PO (00:12)
[2017-11-17] MEDS: Methocarbamol 750 MG Tablet PO (06:24)
[2017-11-17] MEDS: LORazepam 1 MG Tablet PO ×2 (06:24→12:34)
[2017-11-17 06:27] VITALS: BP 122/74; PULSE 53; RESP 18; TEMP 36.6
[2017-11-17 10:00] VITALS: BP 135/88; PULSE 63; RESP 16; TEMP 37.1
[2017-11-17] MEDS: Multivitamins,Therapeutic Tablet 1 TABLET PO (10:40)
[2017-11-17] MEDS: Thiamine Hydrochloride 100 MG Tablet PO (10:40)
[2017-11-17] MEDS: Folic Acid 1 MG Tablet PO (10:40)
--- NOTE | 2017-11-17 13:24 | PCM.DC.SUM ---
<Essie Gonzalez - Last Filed: 11/17/17 13:28> Discharge Date and Diagnosis Date of Admission: 11/15/17 Date of Discharge: 11/17/17 - Primary Discharge Diagnosis 1. Acute alcohol withdrawal on chronic alcohol abuse 2. History of polysubstance abuse 3. Chronic hepatitis C 4. History of ventral hernia repair ?3 5. Tobacco dependence - Secondary Discharge Diagnosis Chronic Problems Chronic abdominal pain (Chronic) History of positive PPD (Chronic) Chronic pain syndrome (Chronic) Nicotine dependence (Chronic) Inflammatory bowel disease (Chronic) Asthma (Chronic) Hospital Course and Treatment Operations: None Procedures: None Summary of Care Provided: The patient is a 37 year old M admitted 11/15/2017 due to acute alcohol withdrawal on chronic alcohol abuse. 1. Acute alcohol withdrawal on chronic alcohol abuse-medical stabilization per protocol. CIWA. Thiamine, folic acid, multivitamin supplementation. Patient wishes to attend residential treatment on discharge from hospital per [facility] arrangement. Patient left AMA prior to completing medical stabilization per protocol. 2. History of polysubstance abuse-urine tox screen positive for cannabinoids. Negative for other substances. 3. Chronic hepatitis C-AST/ALT stable compared to previous labs. 4. History of ventral hernia repair ?3 5. Tobacco dependence-encourage smoking cessation. General: Alert, Oriented x3, Cooperative HEENT: Atraumatic, PERRLA, EOMI, Normocephalic Neck: Supple, No JVD, Negative Carotid Bruits Lungs: Clear to auscultation, Normal air movement Cardiovascular: Regular rate, Regular Rhythm, Normal S1, Normal S2, No murmurs Abdomen: Bowel Sounds Present, Soft, Non Tender, Non-Distended Extremities: No clubbing, No cyanosis, No edema, Capillary Refill Less than 3 Seconds Skin: No rashes, No breakdown Musculoskeletal: No Tenderness to Palpation of Joints or Extremities Neurological: Cranial nerves II-XII grossly intact, Neuro grossly intact Psych/Mental Status: Normal Affect, Appropriate Patient seen in the morning prior to discharge. Physical assessment as noted above. Extensive amount of time spent with patient encouraging him to stay in the hospital for the completion of medical stabilization per protocol with plans of inpatient treatment facility at discharge per [facility]. This was discussed with patient by outpatient counselor and [facility] program personnel as well. However, patient decided to leave AMA. This patient was seen by ANGELI Felton under the supervision of Dr. Wilhelm. Home Medications: Medications to take at Discharge NK [NK] 11/12/17 Primary Care Physician: Celina Mandujano NP-C [Primary Care Provider] - Disposition: Against Medical Advice Minutes spent on discharge:: 35 Patient Condition:: Stable Medical Necessity - Tobacco Use Smoking Status: Current every day smoker Tobacco Use: Cigarettes Meaningful Use Info Meaningful Use Diagnoses (Choose all that apply): None applicable <Irina Wilhelm - Last Filed: 11/17/17 16:46> Discharge Date and Diagnosis - Secondary Discharge Diagnosis Chronic Problems Chronic abdominal pain (Chronic) History of positive PPD (Chronic) Chronic pain syndrome (Chronic) Nicotine dependence (Chronic) Inflammatory bowel disease (Chronic) Asthma (Chronic) Hospital Course and Treatment Summary of Care Provided: The patient is a 37 year old M [] Code Visit Inpatient E&M: 85265 Disch Hosp
--- NOTE | 2017-11-17 13:35 | NURSING ---
patient came to nurses station and politely asked for an AMA form. States he will wait in his room til the nurse has time to bring it in. Discussed with patient that he was to stay til tomorrow. STates he feels ok today and [facility] had arranged a place that he could have a bed tonight. Patient states he lives with an elderly lady and needs to clean up some things for her at the house before he goes tonight. No tremors or sweating noted. patient polite and cooperative. STates he has his contact numbers to follow up and stay sober. AMA paper signed. Patient called a friend for ride and requested to wait outside the main doors. Escorted out by Lena HELTON. Essie Alamo NP aware and [facility] aware.
== END 2017-11-17 13:16 | disposition left against medical advice (07) | DRG 433 ==
PROVIDERS: Nurse Practitioner Family; Admitting Provider Internal Medicine; Family Provider Nurse Practitioner Family; PCP Nurse Practitioner Family; Referring Provider Internal Medicine; Visit Provider Internal Medicine
DX: F10.239 Alcohol dependence with withdrawal, unspecified (principal); B18.2 Chronic viral hepatitis C; F17.210 Nicotine dependence, cigarettes, uncomplicated; K52.89 Other specified noninfective gastroenteritis and colitis; J45.909 Unspecified asthma, uncomplicated; F12.10 Cannabis abuse, uncomplicated
CPT/HCPCS: 36415; 80048; 80053; 80307; 80320; 85025; 96372; 99218; 99281; G0378; G0379; G0480

== ENCOUNTER 2017-11-19 15:49 | Emergency (ER) | payer MEDICAID, SELFPAY ==
[2017-11-19 15:50] VITALS: BP 128/95; PULSE 125; RESP 24; TEMP 36.9; O2SAT 100; BMI 25.7
--- NOTE | 2017-11-19 15:55 | ED.RN ---
PT STATES HE WILL NOT TAKE A SHOT OF HALDOL. STATES LAST TIME HE WAS HERE HE WAS FORCED A SHOT OF HALDOL AND IT MESSED HIM UP FOR 3 DAYS. PT STATES I WILL BEAT THE FUCK OUT OF EVERYONE THAT TRIES TO GIVE ME A SHOT. PT NOT WANTING TO ANSWER PAST MEDICAL QUESTIONS BECAUSE YOU ALREADY HAVE IT ON RECORD
--- NOTE | 2017-11-19 16:37 | ED.DCSUM_ITS ---
- ER Visit Summary Date of Service: 11/19/17 Chief Complaint: Alcohol intoxication History of Present Illness: The patient is a 37 M who goes to the [facility]. He reports that he drinks daily. States that his police liaison officer wants him to go to rehab. He has no desire to stop drinking. In fact, he reports that I had rather than stop drinking. He denies any suicidal or auditory hallucinations. The patient was admitted to the hospital for detox 5 days ago and was discharged 2 days ago. He reports he began drinking again that day. Review of systems: General: No fever, chills, cold sweats. Cardiovascular: No chest pain, palpitations. Respiratory: No cough, shortness of breath, dyspnea on exertion. Gastrointestinal: No abdominal pain, nausea, vomiting, diarrhea, melena, or hematochezia. Genitourinary: No dysuria, frequency, hematuria. Skin: No rash. Neuro: No headache, numbness, weakness. Physical Examination: Vitals: Stable. Afebrile. General: Well-nourished and well-developed. Head: Normocephalic atraumatic. Neck: Supple, no lymphadenopathy. No JVD. Nontender. Cardiovascular: Regular rate and rhythm. No murmurs. Respiratory: No respiratory distress. Clear to auscultation bilaterally. Abdominal: Soft, nontender, nondistended, normal bowel sounds. No guarding, rebound, or peritoneal signs. Back: Nontender. Extremities: Nontender, no edema. Skin: Normal color, no rash. Neurologic: Alert and oriented ?3. Cranial nerves II through XII are intact. Normal strength and sensation. Psych: Normal affect. Emergency Department Course and Treatment: The patient was discussed with his police liaison officer. He does not have a court order to go to rehab. I discussed her the likelihood that this will not be successful. Treatment Plan: Patient will be discharged instructions with to follow-up with lacerations clinic as needed. He has a family member who will pick him up. Disposition: To home in improved and stable condition. Impression: 1. Alcohol abuse. This note was generated with Preedoation software. It may contain incorrect words, spelling, and punctuation that were not noted in review of the chart prior to signing ED Disposition - Plan for ED Patient: Disposition: Home or Assisted Living Chief Complaint: Substance Abuse Instructions: ED Alcohol Abuse Referrals: Celina Mandujano, FOOT PRESS OPERATOR-C [Primary Care Provider] - As Needed
[2017-11-19 16:40] LABS: Absolute Lymphocyte Count 2.91 X10^3/ul (0.83-4.51); Absolute Neutrophil Count 5.6 X10^3/uL (2.0-7.7); Basophil# 0.09 X10^3/uL; Basophil% 0.9 % (0-1); Eosinophil# 0.22 X10^3/uL; Eosinophils% 2.3 % (0-5); Hematocrit 48.1 % (40-54); Lymphocyte # 2.91 X10^3/ul (4.0); Lymphocyte % 30.5 % (19-41); Mean Corp Hgb Conc 35.3 g/gl (32-36); Mean Corpuscular Hgb 33.7 pg (27.0-32.0); Mean Corpuscular Volume 95.2 fL (80-94); Mean Platelet Vol. 8.9 fl (6.2-12.0); Monocyte# 0.66 X10^3/uL; Monocyte% 6.9 % (0-10); Neutrophil # 5.64 X10^3/uL (2.7-7.7); Neutrophil % 59.3 % (47-70); Platelet Count 140 K/mm3 (150-450); RBC Distribution Width CV 13.1 % (11.6-14.6); RBC Distribution Width SD 45.3 fl (35.1-43.9); Red Blood Count 5.05 M/mm3 (4.6-6.2); White Blood Count 9.5 K/mm3 (4.4-11.0)
[2017-11-19 16:41] LABS: POSITIVE COUNT NO; POSITIVE DIFFERENTIAL NO; POSITIVE MORPHOLOGY NO
[2017-11-19 17:08] LABS: ALB/GLOB Ratio 1.2 RATIO (0.9-2.4); AST(SGOT) 229 U/L (15-37); Alanine Aminotransfer ALT/SGPT 232 U/L (16-61); Alkaline Phosphatase 50 U/L (45-117); Anion Gap 12 (5-15); BUN 7 mg/dL (7-18); BUN/Creat Ratio 9.5 RATIO (10-20); Chloride 102 mmol/L (98-107); Creatinine, Serum 0.74 mg/dL (0.70-1.30); EST Glomerular Filtration Rate 127 mL/min (>60); Est Glom Filt Rate - Afr Amer 153 mL/min (>60); Estimated Creatinine Clearance 114.44 ml/min; Glucose 82 mg/dL (74-106); Sodium Level 137 mmol/L (136-145)
== END 2017-11-19 17:27 | disposition home or self-care (01) ==
LOC: ED 16:44
PROVIDERS: Emergency Provider Emergency Medicine; Family Provider Nurse Practitioner Family; PCP Nurse Practitioner Family
DX: F10.20 Alcohol dependence, uncomplicated (principal); Y90.9 Presence of alcohol in blood, level not specified; F17.210 Nicotine dependence, cigarettes, uncomplicated; Z86.19 Personal history of other infectious and parasitic diseases
CPT/HCPCS: 36415; 80053; 80320; 85025; 99282; G0480

== ENCOUNTER 2017-12-05 09:32 | Emergency (ER) | payer MEDICAID, SELFPAY ==
[2017-12-05 09:32] VITALS: BP 124/73; PULSE 75; RESP 18; TEMP 36.9; O2SAT 99; BMI 29.2
[2017-12-05 10:42] LABS: Absolute Lymphocyte Count 1.35 X10^3/ul (0.83-4.51); Absolute Neutrophil Count 2.7 X10^3/uL (2.0-7.7); Basophil# 0.03 X10^3/uL; Basophil% 0.6 % (0-1); Eosinophil# 0.15 X10^3/uL; Hematocrit 41.5 % (40-54); Hemoglobin 13.8 g/dl (13.0-16.5); Lymphocyte # 1.35 X10^3/ul (4.0); Lymphocyte % 26.6 % (19-41); Mean Corp Hgb Conc 33.3 g/gl (32-36); Mean Corpuscular Hgb 32.7 pg (27.0-32.0); Mean Corpuscular Volume 98.3 fL (80-94); Monocyte# 0.86 X10^3/uL; Monocyte% 16.9 % (0-10); Neutrophil # 2.69 X10^3/uL (2.7-7.7); Neutrophil % 52.9 % (47-70); POSITIVE COUNT NO; POSITIVE DIFFERENTIAL NO; POSITIVE MORPHOLOGY NO; Platelet Count 108 K/mm3 (150-450); RBC Distribution Width CV 12.8 % (11.6-14.6); RBC Distribution Width SD 45.9 fl (35.1-43.9); Red Blood Count 4.22 M/mm3 (4.6-6.2); White Blood Count 5.1 K/mm3 (4.4-11.0)
[2017-12-05] MEDS: Morphine 4 MG/ML Syringe IV (10:54)
[2017-12-05] MEDS: 0.9% Normal Saline 1,000 ML 1000 ML IV (10:54)
[2017-12-05] MEDS: Ondansetron 4 MG/2 ML Vial IV (10:54)
[2017-12-05 10:57] LABS: AST(SGOT) 165 U/L (15-37); Alanine Aminotransfer ALT/SGPT 332 U/L (16-61); Albumin, Serum 3.6 g/dL (3.2-5.0); Alkaline Phosphatase 89 U/L (45-117); Anion Gap 7 (5-15); BUN 11 mg/dL (7-18); BUN/Creat Ratio 13.3 RATIO (10-20); Calcium,Total 8.6 mg/dL (8.5-10.1); Chloride 107 mmol/L (98-107); Creatinine, Serum 0.83 mg/dL (0.70-1.30); EST Glomerular Filtration Rate 111 mL/min (>60); Est Glom Filt Rate - Afr Amer 135 mL/min (>60); Globulin 3.5 g/dL (2.2-4.2); Glucose 94 mg/dL (74-106); Lipase 207 U/L (73-393); Protein, Total 7.1 g/dL (6.4-8.2); Sodium Level 142 mmol/L (136-145)
[2017-12-05 12:25] VITALS: BP 121/93; PULSE 71; RESP 16; O2SAT 95
[2017-12-05 12:34] LABS: Bacteria 0 SEEN /hpf (None Seen); Mucous, Urine 0 SEEN /hpf (<or=2+); Red Blood Cells-Urine 0 SEEN /hpf (0-5); Squamous Epithelial Cells - UA 0 SEEN /hpf (0-5); White Blood Cells 0 SEEN /hpf (0-5)
[2017-12-05 12:35] LABS: Color, Urine Yellow (Yellow); Glucose, Dipstick Normal (Normal); Ketone-Dipstick Negative (Negative); Leukocyte Esterase-Dipstick Negative /ul (Negative); Nitrite-Dipstick Negative (Negative); Occult Blood-Urine Negative /ul (Negative); Protein-Dipstick Negative (Negative); Urine Bilirubin Dipstick Negative (Negative); Urine Clarity Clear (Clear); Urine Urobilinogen Normal (Normal)
--- NOTE | 2017-12-05 12:48 | ED.VISSUMM ---
- ER Visit Summary Date of Service: 12/05/17 Chief Complaint: Abdominal pain History of Present Illness: The patient is a 37 M with abdominal pain for several days. He reports bloating and constipation. He tried an [id number]-llytdel laxative yesterday evening, but he has not had any relief. He has not had a normal bowel movement for 10 days. He is passing gas. No nausea or vomiting. No fevers. No urinary symptoms. He has a history of hepatitis C and pancreatitis. He also has a history of ventral hernia repair. Physical Examination: Afebrile and vital signs unremarkable. No acute distress. Heart regular. Lungs clear. Abdomen soft, nontender, nondistended, with normal bowel sounds. Skin appears normal. Test Results: Platelets 108. CMP shows an ALT of 332 and AST of 165. Lipase normal. Urinalysis normal. CT shows hepatosplenomegaly and moderate fecal stasis. Emergency Department Course and Treatment: Patient seen and treated with morphine and Zofran. Workup was all fairly unremarkable. His electrolytes and labs showed a chronic thrombocytopenia as well as elevated liver enzymes consistent with a history of hepatitis C. No sign of obstruction or other concerning findings. I believe given the patient's age, history, exam findings, and diagnostic findings, he is appropriate for outpatient follow-up. We will try a round of magnesium citrate. Increase fluids and fiber. Follow-up with primary care for monitoring of his hepatitis as well as further symptoms. Return for any new or worsening issues right away. Treatment Plan: As above Disposition: Discharged Impression: 1. Constipation 2. Hepatitis C This note was generated with [employer] dictation software. It may contain incorrect words, spelling, and punctuation that were not noted in review of the chart prior to signing ED Disposition - Plan for ED Patient: Chief Complaint: Abd Pain Referrals: Celina Mandujano, ROSITA-C [Primary Care Provider] -
--- NOTE | 2017-12-05 12:51 | ED.DCSUM_ITS ---
- ER Visit Summary Date of Service: 12/05/17 Chief Complaint: Abdominal pain History of Present Illness: The patient is a 37 M with abdominal pain for several days. He reports bloating and constipation. He tried an over-the- counter laxative yesterday evening, but he has not had any relief. He has not had a normal bowel movement for 10 days. He is passing gas. No nausea or vomiting. No fevers. No urinary symptoms. He has a history of hepatitis C and pancreatitis. He also has a history of ventral hernia repair. Physical Examination: Afebrile and vital signs unremarkable. No acute distress. Heart regular. Lungs clear. Abdomen soft, nontender, nondistended, with normal bowel sounds. Skin appears normal. Test Results: Platelets 108. CMP shows an ALT of 332 and AST of 165. Lipase normal. Urinalysis normal. CT shows hepatosplenomegaly and moderate fecal stasis. Emergency Department Course and Treatment: Patient seen and treated with morphine and Zofran. Workup was all fairly unremarkable. His electrolytes and labs showed a chronic thrombocytopenia as well as elevated liver enzymes consistent with a history of hepatitis C. No sign of obstruction or other concerning findings. I believe given the patient's age, history, exam findings, and diagnostic findings, he is appropriate for outpatient follow-up. We will try a round of magnesium citrate. Increase fluids and fiber. Follow-up with primary care for monitoring of his hepatitis as well as further symptoms. Return for any new or worsening issues right away. Treatment Plan: As above Disposition: Discharged Impression: 1. Constipation 2. Hepatitis C This note was generated with [employer] dictation software. It may contain incorrect words, spelling, and punctuation that were not noted in review of the chart prior to signing ED Disposition - Plan for ED Patient: Chief Complaint: Abd Pain Referrals: Celina Mandujano, ROSITA-C [Primary Care Provider] -
--- NOTE | 2017-12-05 12:52 | DCINST.ED_ITS ---
ED Disposition - Plan for ED Patient: Chief Complaint: Abd Pain Instructions: ED Abdominal Pain Unkn Cause Male Prescriptions: Ondansetron [Zofran Odt] 4 mg PO Q8H PRN PRN #10 tab PRN Reason: Nausea Ibuprofen [Motrin] 800 mg PO TID PRN PRN #10 tab PRN Reason: Pain Referrals: Celina Mandujano, CARPENTER MATE-C [Primary Care Provider] -
[2017-12-05 13:16] VITALS: PULSE 70; RESP 16; O2SAT 95
[2017-12-05] MEDS: Magnesium Citrate 300 ML PO (13:16)
== END 2017-12-05 13:18 | disposition home or self-care (01) ==
LOC: ED 10:42
PROVIDERS: Emergency Provider Emergency Medicine; Family Provider Nurse Practitioner Family; PCP Nurse Practitioner Family
DX: K59.00 Constipation, unspecified (principal); B19.20 Unspecified viral hepatitis C without hepatic coma; Z87.19 Personal history of other diseases of the digestive system; D69.6 Thrombocytopenia, unspecified; Z79.899 Other long term (current) drug therapy; Z72.0 Tobacco use
CPT/HCPCS: 74177; 80053; 81001; 83690; 85025; 96361; 96374; 96375; 99283; Q9967; J2405

== ENCOUNTER 2018-03-29 11:44 | Emergency (ER) | payer MEDICAID, SELFPAY ==
[2018-03-29 11:44] VITALS: BP 147/101; PULSE 131; RESP 16; TEMP 36.4; O2SAT 99; BMI 24.1
--- NOTE | 2018-03-29 11:57 | ED.VISSUMM ---
- ER Visit Summary Date of Service: 03/29/18 Chief Complaint: Abdominal pain History of Present Illness: The patient is a 37 M with abdominal pain for about 3 weeks. He is also complaining of constipation. Pain is epigastric somewhat radiating to his back. No flank pain. No fever chills chest pain or shortness of breath. He denies any nausea. No chest pain or shortness of breath. Physical Examination: Patient appears in some distress, he is tachycardic. Moist mucous membranes, no obvious facial deformity No C-spine tenderness supple neck. Regular rhythm without any obvious murmurs Clear lungs bilaterally speaking in full sentences without any obvious respiratory distress Abdomen soft with epigastric pain without any guarding or rebound. Moves all extremities without any difficulty or pain. Skin does not show any obvious rashes or lesions, no trauma. Alert oriented ?3 with no gross focal deficit Emergency Department Course and Treatment: Patient has an unremarkable workup, he does have quite a bit of stool on exam. Had plan to treat him, however he eloped before I could finish reevaluating him and treating him. Apparently he had pulled his IV out per nurse. Disposition: Eloped unknown condition Impression: Abdominal pain Constipation This note was generated with [employer] dictation software. It may contain incorrect words, spelling, and punctuation that were not noted in review of the chart prior to signing ED Disposition - Plan for ED Patient: Chief Complaint: Constipation Referrals: Celina Mandujano, ROSITA-C [Primary Care Provider] -
[2018-03-29] MEDS: Mag Hydrox/Al Hydrox/Simeth 30 ML UDC PO (12:11)
[2018-03-29] MEDS: 0.9% Normal Saline 1,000 ML 1000 ML IV (12:11)
[2018-03-29 12:17] LABS: Absolute Lymphocyte Count 1.65 X10^3/ul (0.83-4.51); Absolute Neutrophil Count 3.6 X10^3/uL (2.0-7.7); Basophil# 0.04 X10^3/uL; Basophil% 0.7 % (0-1); Eosinophil# 0.18 X10^3/uL; Hematocrit 44.5 % (40-54); Hemoglobin 15.4 g/dl (13.0-16.5); Lymphocyte # 1.65 X10^3/ul (4.0); Lymphocyte % 27.5 % (19-41); Mean Corp Hgb Conc 34.6 g/gl (32-36); Mean Corpuscular Hgb 32.5 pg (27.0-32.0); Mean Corpuscular Volume 93.9 fL (80-94); Mean Platelet Vol. 8.6 fl (6.2-12.0); Monocyte% 8.3 % (0-10); Neutrophil # 3.62 X10^3/uL (2.7-7.7); Neutrophil % 60.2 % (47-70); POSITIVE COUNT NO; POSITIVE DIFFERENTIAL NO; POSITIVE MORPHOLOGY NO; Platelet Count 153 K/mm3 (150-450); RBC Distribution Width CV 13.4 % (11.6-14.6); RBC Distribution Width SD 45.7 fl (35.1-43.9); Red Blood Count 4.74 M/mm3 (4.6-6.2)
[2018-03-29 12:37] LABS: AST(SGOT) 286 U/L (15-37); Alanine Aminotransfer ALT/SGPT 444 U/L (16-61); Albumin, Serum 3.8 g/dL (3.2-5.0); Alkaline Phosphatase 63 U/L (45-117); Anion Gap 10 (5-15); BUN 8 mg/dL (7-18); BUN/Creat Ratio 13.5 RATIO (10-20); Calcium,Total 8.6 mg/dL (8.5-10.1); Chloride 104 mmol/L (98-107); Creatinine, Serum 0.59 mg/dL (0.70-1.30); EST Glomerular Filtration Rate 163 mL/min (>60); Est Glom Filt Rate - Afr Amer 197 mL/min (>60); Estimated Creatinine Clearance 149.12 ml/min; Globulin 3.8 g/dL (2.2-4.2); Glucose 90 mg/dL (74-106); Lipase 131 U/L (73-393); Potassium 4.8 mmol/L (3.5-5.1); Protein, Total 7.6 g/dL (6.4-8.2); Sodium Level 139 mmol/L (136-145)
--- NOTE | 2018-03-29 12:44 | RAD_ITS ---
STUDY: X-RAY - ABDOMEN/PELVIS REASON FOR EXAM: Male, 37 years old. Constipation, abdominal pain. TECHNIQUE: KUB COMPARISON: CT abdomen and pelvis 12/05/2017.. FINDINGS: Moderately prominent stool burden distributed throughout the ascending, transverse and descending colon without significant stool of the rectum. Consistent with constipation. Unremarkable small bowel pattern. RAD/Abdomen Single View IMPRESSION: Stool burden of the large bowel is consistent with constipation. No other acute process is evident. Electronically Signed: Omid Lugo MD at 13:50 EST Tel , Service support ,
--- NOTE | 2018-03-29 13:25 | ED.RN ---
pt left before discharge, could not guarantee that the IV was out police advised
--- NOTE | 2018-03-29 13:45 | ED.RN ---
PT LOCATED BY THE POLICE. IV D/C FROM LEFT AC BY THIS NURSE. IV CATHETER INTACT
== END 2018-03-29 13:26 | disposition left against medical advice (07) ==
LOC: ED 12:15
PROVIDERS: Emergency Provider Emergency Medicine; Family Provider Nurse Practitioner Family; PCP Nurse Practitioner Family
DX: R10.9 Unspecified abdominal pain (principal); K59.00 Constipation, unspecified; Z72.0 Tobacco use
CPT/HCPCS: 74018; 80053; 83690; 85025; 96360; 99283; J7030; A4216

== ENCOUNTER 2018-05-17 14:21 | Inpatient (IN) | payer MEDICAID, SELFPAY ==
[2018-05-17] VITALS (7 sets, daily range): BP systolic 107–136; BP diastolic 83–99; PULSE 76–102; RESP 10–20; TEMP 36.7–37.5; O2SAT 97–98; BMI 26.6; BMI 26.7
--- NOTE | 2018-05-17 15:08 | ED.DCSUM_ITS ---
- ER Visit Summary Date of Service: 05/17/18 Chief Complaint: Alcohol withdrawal History of Present Illness: The patient is a 37 M who presents in alcohol withdrawal, with request to get into the [facility] detox program. Patient normally drinks 24-30 beers per day, and his last alcoholic beverage was days ago. Since then patient has developed chills and sweats, abdominal pain, vomiting, constipation, diffuse myalgias, tremulousness, and has been hallucinating at night. He thinks he had 2 seizures. He has a history of prior detox, prior withdrawal seizures, pancreatitis, liver failure and hernia surgery. Patient denies any other drug use other than marijuana. Physical Examination: Vital signs: afebrile, hemodynamically stable, no hypoxia on room air General: well nourished, well developed, in no distress, appears tremulous and nervous Skin: warm, moist, no rash, no pallor HEENT: normocephalic and atraumatic; healing left inferior periorbital ecchymosis, no tenderness, no other maxillofacial trauma, PERRL, EOMI, moist mucous membranes Cardiovascular: Tachycardic rate and rhythm without murmurs, no peripheral edema, 2+ pulses all distal extremities Respiratory: No increased work of breathing, lungs are clear to auscultation bilaterally, no rales, rhonchi or wheezing Abdominal: Abdomen is soft, tender in the right upper quadrant with normoactive bowel sounds, no guarding or rebound, no masses MSK: Moves all extremities, no deformities, normal strength Neuro: Awake and alert, oriented ?4. No facial droop, sensation and motor function intact and symmetric Test Results: Abnormal Lab Results 05/17/18 05/17/18 05/17/18 15:13 15:35 15:35 WBC 8.4 RBC 5.10 Hgb 16.4 Hct 47.3 MCV 92.7 MCH 32.2 H MCHC 34.7 RDW 12.6 RDW Differential 42.3 Plt Count 170 MPV 8.9 Immature Gran % (Auto) 0.100 Neut % (Auto) 67.9 Lymph % (Auto) 22.3 Hood % (Auto) 7.8 Eos % (Auto) 1.5 Baso % (Auto) 0.4 Absolute Neuts (auto) 5.7 Absolute Lymphs (auto) 1.88 Total Counted Not Reportable Sodium 137 Potassium 4.0 Chloride 103 Carbon Dioxide 25.0 Anion Gap 9 BUN 13 Creatinine 0.90 Estim Creat Clear Calc 94.10 Est GFR (MDRD) Af Amer 122 Est GFR (MDRD) Non-Af 101 BUN/Creatinine Ratio 14.5 Glucose 95 Calcium 8.9 Total Bilirubin 0.60 AST 58 H ALT 115 H Alkaline Phosphatase 55 Total Protein 8.3 H Albumin 4.3 Globulin 4.0 Albumin/Globulin Ratio 1.1 TSH 3.16 Urine Opiates Screen NEGATIVE Urine Methadone Screen NEGATIVE Ur Barbiturates Screen NEGATIVE Ur Phencyclidine Scrn NEGATIVE Ur Amphetamines Screen NEGATIVE U Methamphetamin-MDMA NEGATIVE U Benzodiazepines Scrn NEGATIVE Urine Cocaine Screen NEGATIVE U Cannabinoids Screen POSITIVE H Ur Drug Screen Comment Ethyl Alcohol 05/17/18 15:35 WBC RBC Hgb Hct MCV MCH MCHC RDW RDW Differential Plt Count MPV Immature Gran % (Auto) Neut % (Auto) Lymph % (Auto) Hood % (Auto) Eos % (Auto) Baso % (Auto) Absolute Neuts (auto) Absolute Lymphs (auto) Total Counted Sodium Potassium Chloride Carbon Dioxide Anion Gap BUN Creatinine Estim Creat Clear Calc Est GFR (MDRD) Af Amer Est GFR (MDRD) Non-Af BUN/Creatinine Ratio Glucose Calcium Total Bilirubin AST ALT Alkaline Phosphatase Total Protein Albumin Globulin Albumin/Globulin Ratio TSH Urine Opiates Screen Urine Methadone Screen Ur Barbiturates Screen Ur Phencyclidine Scrn Ur Amphetamines Screen U Methamphetamin-MDMA U Benzodiazepines Scrn Urine Cocaine Screen U Cannabinoids Screen Ur Drug Screen Comment Ethyl Alcohol 9.0 Medications Given Discontinued Medications Sodium Chloride () 1,000 mls @ 999 mls/hr IV .Q1H1M ONE Stop: 05/17/18 16:05 Last Admin: 05/17/18 15:36 Dose: 999 mls/hr Lorazepam (Ativan) 1 mg IV X1 ONE Stop: 05/17/18 15:06 Last Admin: 05/17/18 15:41 Dose: 1 mg Ondansetron HCl (Zofran) 4 mg IV X1 ONE Stop: 05/17/18 15:06 Last Admin: 05/17/18 15:41 Dose: 4 mg Emergency Department Course and Treatment: Patient presents in alcohol withdrawal, and was given IV fluids, Zofran and Ativan for his symptoms. Medical screening exam was performed. Patient had no leukocytosis, electrolyte derangements, renal dysfunction, and he had mild elevation of ALT and AST. Chart review shows patient's transaminases are normally much more elevated than they are today. Alcohol was negative. Tox screen was positive for cannabinoids. Thyroid function within normal limits. On reevaluation patient was feeling much better. His tachycardia had resolved and he felt less tremulous. Patient declined any further medications at this time. Patient was discussed with [facility], who feel patient is appropriate for their program. However, they will not be able to evaluate him tonight, and requested that patient be admitted to the hospitalist. They will evaluate the patient in the morning for admission into their program. Patient discussed with hospitalist for admission. Treatment Plan: [] Disposition: [] Impression: Acute alcohol withdrawal, admission for alcohol detox This note was generated with [facility] dictation software. It may contain incorrect words, spelling, and punctuation that were not noted in review of the chart prior to signing ED Disposition - Plan for ED Patient: Referrals: Celina Mandujano, CDL SERVICE TECHNICIAN-C [Primary Care Provider] -
[2018-05-17] MEDS: 0.9% Normal Saline 1,000 ML 999 ML IV (15:36)
[2018-05-17] MEDS: Ondansetron 4 MG/2 ML Vial IV (15:41)
[2018-05-17] MEDS: LORazepam 2 MG/ML Syringe 1 MG IV (15:41)
[2018-05-17 15:53] LABS: Amphetamine Urine VISTA NEGATIVE (<1000 ng/mL); Barbiturate Urine VISTA NEGATIVE (< 200 ng/mL); Benzodiazepine Urine VISTA NEGATIVE (< 200 ng/mL); Cocaine Urine VISTA NEGATIVE (< 300 ng/mL); Ecstacy Urine VISTA NEGATIVE (< 500 ng/mL); Methadone Urine VISTA NEGATIVE (< 300 ng/mL); PCP Urine VISTA NEGATIVE (< 25 ng/mL); THC Urine VISTA POSITIVE (< 50 ng/mL); Vista UDS pH Range 6
[2018-05-17 16:02] LABS: Absolute Lymphocyte Count 1.88 X10^3/ul (0.83-4.51); Absolute Neutrophil Count 5.7 X10^3/uL (2.0-7.7); Basophil# 0.03 X10^3/uL; Basophil% 0.4 % (0-1); Eosinophil# 0.13 X10^3/uL; Eosinophils% 1.5 % (0-5); Hematocrit 47.3 % (40-54); Hemoglobin 16.4 g/dl (13.0-16.5); Lymphocyte # 1.88 X10^3/ul (4.0); Lymphocyte % 22.3 % (19-41); Mean Corp Hgb Conc 34.7 g/gl (32-36); Mean Corpuscular Hgb 32.2 pg (27.0-32.0); Mean Corpuscular Volume 92.7 fL (80-94); Mean Platelet Vol. 8.9 fl (6.2-12.0); Monocyte# 0.66 X10^3/uL; Monocyte% 7.8 % (0-10); Neutrophil # 5.73 X10^3/uL (2.7-7.7); Neutrophil % 67.9 % (47-70); Platelet Count 170 K/mm3 (150-450); RBC Distribution Width CV 12.6 % (11.6-14.6); RBC Distribution Width SD 42.3 fl (35.1-43.9); White Blood Count 8.4 K/mm3 (4.4-11.0)
[2018-05-17 16:11] LABS: POSITIVE COUNT NO; POSITIVE DIFFERENTIAL NO; POSITIVE MORPHOLOGY NO
[2018-05-17 16:22] LABS: ALB/GLOB Ratio 1.1 RATIO (0.9-2.4); AST(SGOT) 58 U/L (15-37); Alanine Aminotransfer ALT/SGPT 115 U/L (16-61); Albumin, Serum 4.3 g/dL (3.2-5.0); Alkaline Phosphatase 55 U/L (45-117); Anion Gap 9 (5-15); BUN 13 mg/dL (7-18); BUN/Creat Ratio 14.5 RATIO (10-20); Calcium,Total 8.9 mg/dL (8.5-10.1); Chloride 103 mmol/L (98-107); EST Glomerular Filtration Rate 101 mL/min (>60); Est Glom Filt Rate - Afr Amer 122 mL/min (>60); Glucose 95 mg/dL (74-106); Protein, Total 8.3 g/dL (6.4-8.2); Sodium Level 137 mmol/L (136-145); Thyroid Stim Hormone (TSH) 3.16 uIU/mL (0.358-3.74)
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
[2018-05-17] MEDS: chlordiazePOXIDE 25 MG Capsule 50 MG PO ×2 (17:51→23:41)
[2018-05-17] MEDS: Folic Acid 1 MG Tablet PO ×2 (17:52)
[2018-05-17] MEDS: Dicyclomine 10 MG Capsule 20 MG PO (17:52)
[2018-05-17 18:17] LABS: Lipase 200 U/L (73-393)
[2018-05-17] MEDS: LORazepam 2 MG/ML Syringe IV ×2 (18:42→21:02)
[2018-05-17] MEDS: Nicotine Polacrilex 2 MG GUM PO ×2 (19:23→21:34)
[2018-05-17] MEDS: 0.9% NaCl Peripheral Flush Adult/Peds IV (21:00)
[2018-05-18 02:00] VITALS: BP 109/65; PULSE 76; RESP 16; TEMP 36.6
[2018-05-18] MEDS: LORazepam 2 MG/ML Syringe 1 MG IV ×8 (04:50→21:35)
[2018-05-18] MEDS: hydrOXYzine PAM 25 MG Capsule 50 MG PO ×3 (04:58→20:06)
[2018-05-18] MEDS: Nicotine Polacrilex 2 MG GUM PO ×7 (05:00→21:35)
[2018-05-18] MEDS: chlordiazePOXIDE 25 MG Capsule 50 MG PO (05:00)
[2018-05-18 05:01] VITALS: BP 128/84; PULSE 78; RESP 18; TEMP 36.3
[2018-05-18] MEDS: 0.9% NaCl Peripheral Flush Adult/Peds IV ×9 (05:33→21:04)
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
[2018-05-18 08:11] VITALS: BP 124/107; PULSE 95; RESP 18; TEMP 36.6
[2018-05-18] MEDS: Methocarbamol 750 MG Tablet PO ×3 (08:26→21:35)
[2018-05-18] MEDS: Dicyclomine 10 MG Capsule 20 MG PO ×2 (08:26→15:44)
[2018-05-18] MEDS: Multivitamins,Therapeutic Tablet 1 TABLET PO (08:28)
[2018-05-18] MEDS: Thiamine Hydrochloride 100 MG Tablet PO (08:28)
--- NOTE | 2018-05-18 09:33 | EKG12_ITS ---
Test Reason : ALC WITHDRAWAL Blood Pressure : / mmHG Vent. Rate : 102 BPM Atrial Rate : 102 BPM P-R Int : 112 ms QRS Dur : 084 ms QT Int : 342 ms P-R-T Axes : 064 059 029 degrees QTc Int : 445 ms Sinus tachycardia Otherwise normal ECG When compared with ECG of 17-AUG-2013 05:18, No significant change was found Confirmed by THEE DOMINGUEZ, ADRIAN ([id number]), acquisitions editor MARINE THURMAN ([id number]) on 05/31/2018 1:21:02 PM Referred By: ELAINE Confirmed By:ADRIAN KINGSTON MD
[2018-05-18] MEDS: LORazepam 2 MG/ML Syringe IV (09:54)
[2018-05-18] MEDS: QUEtiapine 25 MG Tablet PO (10:02)
[2018-05-18] MEDS: LORazepam 1 MG Tablet PO ×3 (11:23→18:47)
--- NOTE | 2018-05-18 12:54 | PN_ITS ---
<Essie Gonzalez - Last Filed: 05/18/18 12:54> Subjective: Patient seen and examined. Reports hallucinations overnight. Girlfriend at bedside. Patient states he was seeing someone in his closet and was freaked out. - Physical Exam General: Alert, Oriented x3, Cooperative, - - Appears anxious HEENT: Atraumatic, PERRLA, EOMI, Normocephalic Neck: Supple, No JVD, Negative Carotid Bruits Lungs: Clear to auscultation, Normal air movement Cardiovascular: Regular rate, Regular Rhythm, Normal S1, Normal S2, No murmurs Abdomen: Bowel Sounds Present, Soft, Non Tender, Non-Distended Extremities: No clubbing, No cyanosis, No edema, Capillary Refill Less than 3 Seconds Skin: No rashes, No breakdown Musculoskeletal: No Tenderness to Palpation of Joints or Extremities Neurological: Cranial nerves II-XII grossly intact, Neuro grossly intact Psych/Mental Status: Normal Affect, Appropriate Vital Signs Temp Pulse Resp BP Pulse Ox 97.8 F 95 18 124/107 H 98 05/18/18 08:11 05/18/18 08:11 05/18/18 08:11 05/18/18 08:11 05/17/18 17:16 Oxygen Delivery Method Room Air Weight: 155 lb 13.869 oz Body Mass Index (BMI) 26.7 Intake and Output for Last 24 Hours 05/16/18 05/17/18 05/18/18 23:59 23:59 23:59 Intake Total 650 / 650 450 / 450 Balance 650 / 650 450 / 450 Laboratory Tests Past 24 Hrs 05/17/18 05/17/18 05/17/18 15:13 15:35 15:35 WBC 8.4 RBC 5.10 Hgb 16.4 Hct 47.3 MCV 92.7 MCH 32.2 H MCHC 34.7 RDW 12.6 RDW Differential 42.3 Plt Count 170 MPV 8.9 Immature Gran % (Auto) 0.100 Neut % (Auto) 67.9 Lymph % (Auto) 22.3 [place] % (Auto) 7.8 Eos % (Auto) 1.5 Baso % (Auto) 0.4 Absolute Neuts (auto) 5.7 Absolute Lymphs (auto) 1.88 Total Counted Not Reportable Sodium 137 Potassium 4.0 Chloride 103 Carbon Dioxide 25.0 Anion Gap 9 BUN 13 Creatinine 0.90 Estim Creat Clear Calc 94.10 Est GFR (MDRD) Af Amer 122 Est GFR (MDRD) Non-Af 101 BUN/Creatinine Ratio 14.5 Glucose 95 Calcium 8.9 Total Bilirubin 0.60 AST 58 H ALT 115 H Alkaline Phosphatase 55 Total Protein 8.3 H Albumin 4.3 Globulin 4.0 Albumin/Globulin Ratio 1.1 Lipase TSH 3.16 Urine Opiates Screen NEGATIVE Urine Methadone Screen NEGATIVE Ur Barbiturates Screen NEGATIVE Ur Phencyclidine Scrn NEGATIVE Ur Amphetamines Screen NEGATIVE U Methamphetamin-MDMA NEGATIVE U Benzodiazepines Scrn NEGATIVE Urine Cocaine Screen NEGATIVE U Cannabinoids Screen POSITIVE H Ur Drug Screen Comment Ethyl Alcohol 05/17/18 05/17/18 15:35 15:35 WBC RBC Hgb Hct MCV MCH MCHC RDW RDW Differential Plt Count MPV Immature Gran % (Auto) Neut % (Auto) Lymph % (Auto) [place] % (Auto) Eos % (Auto) Baso % (Auto) Absolute Neuts (auto) Absolute Lymphs (auto) Total Counted Sodium Potassium Chloride Carbon Dioxide Anion Gap BUN Creatinine Estim Creat Clear Calc Est GFR (MDRD) Af Amer Est GFR (MDRD) Non-Af BUN/Creatinine Ratio Glucose Calcium Total Bilirubin AST ALT Alkaline Phosphatase Total Protein Albumin Globulin Albumin/Globulin Ratio Lipase 200 TSH Urine Opiates Screen Urine Methadone Screen Ur Barbiturates Screen Ur Phencyclidine Scrn Ur Amphetamines Screen U Methamphetamin-MDMA U Benzodiazepines Scrn Urine Cocaine Screen U Cannabinoids Screen Ur Drug Screen Comment Ethyl Alcohol 9.0 Medical Necessity - Tobacco Use Smoking Status: Current every day smoker Tobacco Use: Cigarettes Assessment/Plan 1. Acute alcohol withdrawal on chronic alcohol abuse-medical stabilization per protocol. CIWA. Thiamine, folic acid, multivitamin supplementation. Patient wishes to attend residential treatment on discharge from hospital per [facility] arrangement. 2. History of polysubstance abuse-urine tox screen positive for cannabinoids. 3. Chronic hepatitis C 4. History of ventral hernia repair ?3 5. Tobacco dependence-encourage smoking cessation. DVT prophylaxis-not indicated, low risk. This patient was seen by ANGELI Felton under the supervision of Dr. Wilhelm. <Irina Wilhelm - Last Filed: 05/18/18 13:46> - Physical Exam Vital Signs Temp Pulse Resp BP Pulse Ox 97.8 F 95 18 124/107 H 98 05/18/18 08:11 05/18/18 08:11 05/18/18 08:11 05/18/18 08:11 05/17/18 17:16 Oxygen Delivery Method Room Air Weight: 70.7 kg Body Mass Index (BMI) 26.7 Intake and Output for Last 24 Hours 05/16/18 05/17/18 05/18/18 23:59 23:59 23:59 Intake Total 650 / 650 450 / 450 Balance 650 / 650 450 / 450 Laboratory Tests Past 24 Hrs 05/17/18 05/17/18 05/17/18 15:13 15:35 15:35 WBC 8.4 RBC 5.10 Hgb 16.4 Hct 47.3 MCV 92.7 MCH 32.2 H MCHC 34.7 RDW 12.6 RDW Differential 42.3 Plt Count 170 MPV 8.9 Immature Gran % (Auto) 0.100 Neut % (Auto) 67.9 Lymph % (Auto) 22.3 [place] % (Auto) 7.8 Eos % (Auto) 1.5 Baso % (Auto) 0.4 Absolute Neuts (auto) 5.7 Absolute Lymphs (auto) 1.88 Total Counted Not Reportable Sodium 137 Potassium 4.0 Chloride 103 Carbon Dioxide 25.0 Anion Gap 9 BUN 13 Creatinine 0.90 Estim Creat Clear Calc 94.10 Est GFR (MDRD) Af Amer 122 Est GFR (MDRD) Non-Af 101 BUN/Creatinine Ratio 14.5 Glucose 95 Calcium 8.9 Total Bilirubin 0.60 AST 58 H ALT 115 H Alkaline Phosphatase 55 Total Protein 8.3 H Albumin 4.3 Globulin 4.0 Albumin/Globulin Ratio 1.1 Lipase TSH 3.16 Urine Opiates Screen NEGATIVE Urine Methadone Screen NEGATIVE Ur Barbiturates Screen NEGATIVE Ur Phencyclidine Scrn NEGATIVE Ur Amphetamines Screen NEGATIVE U Methamphetamin-MDMA NEGATIVE U Benzodiazepines Scrn NEGATIVE Urine Cocaine Screen NEGATIVE U Cannabinoids Screen POSITIVE H Ur Drug Screen Comment Ethyl Alcohol 05/17/18 05/17/18 15:35 15:35 WBC RBC Hgb Hct MCV MCH MCHC RDW RDW Differential Plt Count MPV Immature Gran % (Auto) Neut % (Auto) Lymph % (Auto) [place] % (Auto) Eos % (Auto) Baso % (Auto) Absolute Neuts (auto) Absolute Lymphs (auto) Total Counted Sodium Potassium Chloride Carbon Dioxide Anion Gap BUN Creatinine Estim Creat Clear Calc Est GFR (MDRD) Af Amer Est GFR (MDRD) Non-Af BUN/Creatinine Ratio Glucose Calcium Total Bilirubin AST ALT Alkaline Phosphatase Total Protein Albumin Globulin Albumin/Globulin Ratio Lipase 200 TSH Urine Opiates Screen Urine Methadone Screen Ur Barbiturates Screen Ur Phencyclidine Scrn Ur Amphetamines Screen U Methamphetamin-MDMA U Benzodiazepines Scrn Urine Cocaine Screen U Cannabinoids Screen Ur Drug Screen Comment Ethyl Alcohol 9.0 Assessment/Plan This patient was seen in conjunction with Essie Gonzalez NP. I have independently interviewed and examined the patient and reviewed pertinent historical, laboratory, and other data. Please refer to her note for patient's presentation, findings, and recommendations. Patient was seen and examined. Complains of visual hallucinations. Seeing people in the room that are not there. Complains of somebody in his closet. Denies ever being in ICU for treatment of alcohol withdrawal. Recently medicated with IV Ativan. Last CIWA score was 8 Physical Exam: Gen: Looks in some discomfort, not pale, not jaundiced, alert oriented x3 CVS:HS I +II, regular, no murmurs RESP: Clinically clear to auscultation GI: Bowel sounds present, soft, nontender, no palpable organs EXT:No edema ASSESSMENT: 1. Acute alcohol withdrawal, moderate with hallucinations 2. Chronic alcohol dependence 3. Chronic hepatitis C 4. Nicotine dependence Meds reviewed Plan: DC Librium taper Start on Ativan taper IV Ativan 2 mg x1 Start Seroquel 25 mg p.o. twice daily Monitor for lethargy and hypotension Code Visit Inpatient E&M: 07462 Subs Hosp L2
[2018-05-18 14:00] VITALS: BP 120/97; PULSE 108; RESP 18; TEMP 36.8
[2018-05-18] MEDS: Haloperidol 5 MG Tablet 2.5 MG PO (18:48)
[2018-05-18] MEDS: traZODone 50 MG Tablet PO (21:04)
[2018-05-18 21:23] VITALS: BP 132/84; PULSE 74; RESP 18; TEMP 36.6
[2018-05-19 02:00] VITALS: RESP 16
[2018-05-19 06:00] VITALS: RESP 16
[2018-05-19] MEDS: LORazepam 1 MG Tablet PO ×2 (06:23→13:16)
[2018-05-19] MEDS: Nicotine Polacrilex 2 MG GUM PO ×3 (06:23→14:31)
[2018-05-19] MEDS: hydrOXYzine PAM 25 MG Capsule 50 MG PO ×2 (06:23→13:17)
--- NOTE | 2018-05-19 07:44 | NURSING ---
Patient and female visitor yelling at each other in room. This nurse into room, informed both patient and female visitor that yelling will not be tolerated and that if it continues, security will be called and visitor will be asked to leave. Visitor acknowledged and stated there would be no more yelling.
--- NOTE | 2018-05-19 08:38 | PCM.PN.HOSP ---
Vitals/I&O's: Vital Signs Temp Pulse Resp BP Pulse Ox 97.9 F 74 16 132/84 H 98 05/18/18 21:23 05/18/18 21:23 05/19/18 06:00 05/18/18 21:23 05/17/18 17:16 Oxygen Delivery Method Room Air Weight: 70.7 kg Body Mass Index (BMI) 26.7 Intake and Output for Last 24 Hours 05/17/18 05/18/18 05/19/18 23:59 23:59 23:59 Intake Total 650 / 650 450 / 450 1300 / 1300 Balance 650 / 650 450 / 450 1300 / 1300 Current Medications Dicyclomine HCl (Bentyl) 20 mg PO Q6H PRN PRN PRN Reason: abdominal discomfort Last Admin: 05/18/18 15:44 Dose: 20 mg [facility]) [facility] Last Admin: 05/17/18 17:52 Dose: 1 mg Haloperidol (Haldol) 2.5 mg PO Q4H PRN PRN PRN Reason: AGITATION Hydroxyzine Pamoate (Vistaril Pamoate Capsule) 50 mg PO Q6H PRN PRN PRN Reason: Mild Anxiety (score 1/3) Last Admin: 05/19/18 06:23 Dose: 50 mg Lorazepam (Ativan) 1 mg IV Q2H PRN PRN PRN Reason: Severe Anxiety Last Admin: 05/18/18 21:35 Dose: 1 mg Lorazepam (Ativan) 2 mg IV X1 PRN PRN Reason: Seizure Last Admin: 05/17/18 21:02 Dose: 2 mg Lorazepam (Ativan) 1 mg PO Q6H [facility]; Taper Stop: 05/21/18 14:59 Last Admin: 05/19/18 06:23 Dose: 1 mg Magnesium Hydroxide (Milk Of Magnesia) 30 ml PO DAILY PRN PRN PRN Reason: Constipation Methocarbamol (Methocarbamol) 750 mg PO Q6H PRN PRN PRN Reason: Muscle Aches Last Admin: 05/18/18 21:35 Dose: 750 mg Multivitamins (Multivitamin) [facility] Last Admin: 05/18/18 08:28 Dose: 1 tablet Nicotine Polacrilex (Rugby Nicotine (Bkc)) 2 mg PO Q2H PRN PRN PRN Reason: AGITATION Last Admin: 05/19/18 06:23 Dose: 2 mg Sodium Chloride () 5 - 15 ml IV UD PRN PRN Reason: SALINE FLUSH Last Admin: 05/18/18 21:04 Dose: 10 ml Thiamine HCl (Vitamin B1) [facility] Last Admin: 05/18/18 08:28 Dose: 100 mg Trazodone HCl (Desyrel) 50 mg PO QHS [facility] Last Admin: 05/18/18 21:04 Dose: 50 mg Medical Necessity - Tobacco Use Smoking Status: Current every day smoker Tobacco Use: Cigarettes
[2018-05-19] MEDS: Thiamine Hydrochloride 100 MG Tablet PO (08:58)
[2018-05-19] MEDS: Multivitamins,Therapeutic Tablet 1 TABLET PO (08:58)
[2018-05-19] MEDS: Folic Acid 1 MG Tablet PO (08:58)
[2018-05-19] MEDS: Dicyclomine 10 MG Capsule 20 MG PO (09:11)
[2018-05-19] MEDS: Methocarbamol 750 MG Tablet PO (09:11)
[2018-05-19] MEDS: LORazepam 2 MG/ML Syringe 1 MG IV ×3 (09:12→14:28)
[2018-05-19] MEDS: 0.9% NaCl Peripheral Flush Adult/Peds IV ×3 (09:14→14:28)
--- NOTE | 2018-05-19 09:27 | DCINST_ITS ---
- Discharge Diagnoses Reason(s) for Visit for Discharge Instructions: Alcohol withdrawal You will use the following diet at home:: Regular Your food should be the consistency of: Regular Your liquids should be the consistency of: Regular/Thin Discharge Activity: Return to Normal Activity Additional Instructions: Follow-up with outpatient substance use programs as suggested. You have been prescribed a medication to help with anxiety. Follow-up with your primary care doctor within 1-2 weeks Allergies/Adverse Reactions: Allergies No Known Allergies Allergy (Verified 05/17/18 14:23) Medications to take at Discharge Citalopram [Celexa] 20 mg PO DAILY #30 tab 05/19/18 Folic Acid 1 mg PO DAILYCM #30 tab 05/19/18 Multivitamins,Therapeutic [Multivitamin] 1 tab PO DAILYCM #30 tab 05/19/18 Thiamine Hydrochloride [Vitamin B1] 100 mg PO DAILYCM #30 tab 05/19/18 The following prescriptions were given: Citalopram [Celexa] 20 mg PO DAILY #30 tablet Folic Acid 1 mg PO DAILYCM #30 tablet Multivitamins,Therapeutic [Multivitamin] 1 tablet PO DAILYCM #30 tablet Thiamine Hydrochloride [Vitamin B1] 100 mg PO DAILYCM #30 tablet Primary Care Physician: Celina Mandujano NP-C [Primary Care Provider] - Please follow up with your Primary Care Physician in: within 1-2 weeks Test Results: Test results from this visit will be discussed in further detail at your follow- up appointment, if applicable. Proposed Discharge Date: 05/19/18
[2018-05-19 10:00] VITALS: BP 113/76; PULSE 78; RESP 18; TEMP 36.6
--- NOTE | 2018-05-19 10:03 | CASEMGMT ---
Addendum entered by Nani Caldera 05/19/18 10:46: KEV called [facility] in [place], spoke w/Genoveva([phone]). The fax was not received, KEV refaxed the information. DORYS Lopez, FAMILY ASSISTANT Original Note: Nicole hammond [employer] is assisting pt in getting connected to [facility]. KEV had pt sign a release and faxed clinical information to [facility]. DORYS Lopez, FAMILY ASSISTANT
--- NOTE | 2018-05-19 11:33 | CASEMGMT ---
Addendum entered by Nani Caldera 05/19/18 13:22: Pt has decided does not want to go to [email or web address] in [place] as it is too far away. He is interested in going to [facility] in [place]. Pt signed a release. SW called, message left for intake person to call this SW back. Pt also needs hospital to notify his account officer where he goes at discharge and when he was here. Pt signed a release for SW to send this information to the account officer once it is arranged. Pt also asked about [facility], SW explained that Nicole from [facility] had called [facility]. SW called [facility] again, spoke w/Racheal, second message left to call this SW back. SW spoke w/Nicole from [facility], if Racheal does not call this SW back in a timely fashion Nicole will follow up. DORYS Lopez, RISK CONTROL MANAGER Original Note: The program [facility] faxed over a form for pt to sign so he can go voluntarily. SW went in to speak w/pt regarding this program, explained it's 3-5 days, and that they focus on both substance abuse and mental health. Pt states to SW that he is not a mental health patient and does not appreciate that everyone here keeps referring to him as a mental health patient. He states he came here to focus on his substance abuse, and that's it. Pt states that he is sick of everyone coming in an speaking w/him about mental health and that we violated HIPA by telling everyone about his mental health. SW explained he signed a release for SW to fax information to this program. SW explained however that this program in [place] is voluntary, and he does not have to go if he does not want to go. Pt states that we cannot make him go. SW reiterated again that this is voluntary, if he has a mental health diagnosis, they could help with this. Pt states he does not want to speak w/SW any longer, states he called a place in [place] behind your back and doesn't know why he can't go there, or some place close. SW asked the pt the name of the program, pt states he does not know. SW let pt know if he would like to speak w/the SW again, to let the RN know and SW can return. Pt also asked to speak w/the charge nurse. SW let RN know. art consultant spoke to pt, he had a concern regarding the clogged toilet and nothing further. SW let Andree Nichols from [facility] know the above information. They will follow up w/pt again this afternoon. DORYS Lpoez, RISK CONTROL MANAGER
--- NOTE | 2018-05-19 12:00 | DS.PCM_ITS ---
Discharge Date and Diagnosis Date of Admission: 05/17/18 Date of Discharge: 05/19/18 - Primary Discharge Diagnosis Acute alcohol withdrawal hallucinations Polysubstance use disorder Nicotine dependence - Secondary Discharge Diagnosis Chronic Problems Chronic abdominal pain (Chronic) History of positive PPD (Chronic) Chronic pain syndrome (Chronic) Nicotine dependence (Chronic) Inflammatory bowel disease (Chronic) Asthma (Chronic) Hospital Course and Treatment None Operations: None Procedures: None Summary of Care Provided: The patient is a 37 year old M past medical history of alcohol dependence who last used 3 days before his admission. [facility] to his admission. Presented to the emergency department with quest to get into the [facility] program. He admits to normally drinking 24-30 beers a day. He admitted to chills, sweats, abdominal pain, vomiting, diffuse myalgias and cramping most as well as hallucinations. Admits to having hallucinations during his previous alcohol withdrawal states. He was admitted and monitored using a [facility] protocol. He was seen by vision staff and told that he did not meet criteria to be enrolled and [facility]. Over the course of his stay, patient continued to have severe hallucinations and was seen people in the room. He was started on Seroquel which he took only one dose and refused to take subsequently because he said it gives him restlessness. He is said that Haldol and BuSpar had worked for him in the past. He was subsequently managed on Haldol. Patient was given resources to follow-up in the outpatient with psychiatry/substance abuse team. Subjective: On the day of discharge, patient felt improved. Denies any hallucinations or tremors. Haldol used last night helped a lot. Patient admits to ongoing anxiety and has been using alcohol as an anxiolytic/antidepressant. - Physical Exam General: Alert, Oriented x3, Cooperative, No apparent distress HEENT: Atraumatic, PERRLA, EOMI, Normocephalic, - - Bruise over the right maxillary area Oral: Moist Mucosa Neck: Supple, No JVD, Negative Carotid Bruits Lungs: Clear to auscultation, Normal air movement Cardiovascular: Regular rate, Regular Rhythm, Normal S1, Normal S2, No murmurs Abdomen: Bowel Sounds Present, Soft, Non Tender, Non-Distended, No Hepato-splen omegaly Extremities: No edema, Capillary Refill Less than 3 Seconds Skin: No rashes, No breakdown Musculoskeletal: No Tenderness to Palpation of Joints or Extremities Lymphatic: No Cervical, Supraclavicular, or Inguinal Adenopathy Neurological: Cranial nerves II-XII grossly intact, Neuro grossly intact Psych/Mental Status: Appropriate, Anxious, Restless Vital Signs Temp Pulse Resp BP Pulse Ox 97.8 F 78 18 113/76 98 05/19/18 10:00 05/19/18 10:00 05/19/18 10:00 05/19/18 10:00 05/17/18 17:16 Oxygen Delivery Method Room Air Weight: 70.7 kg Body Mass Index (BMI) 26.7 Intake and Output for Last 24 Hours 05/17/18 05/18/18 05/19/18 23:59 23:59 23:59 Intake Total 650 / 650 450 / 450 1300 / 1300 Balance 650 / 650 450 / 450 1300 / 1300 Discharge Diet: No Restrictions Discharge Activity: Return to Normal Activity Home Medications: Medications to take at Discharge Citalopram [Celexa] 20 mg PO DAILY #30 tab 05/19/18 Folic Acid 1 mg PO DAILYCM #30 tab 05/19/18 Multivitamins,Therapeutic [Multivitamin] 1 tab PO DAILYCM #30 tab 05/19/18 Thiamine Hydrochloride [Vitamin B1] 100 mg PO DAILYCM #30 tab 05/19/18 Following Prescrptions Were Given to Patient: Citalopram [Celexa] 20 mg PO DAILY #30 tab Folic Acid 1 mg PO DAILYCM #30 tab Multivitamins,Therapeutic [Multivitamin] 1 tab PO DAILYCM #30 tab Thiamine Hydrochloride [Vitamin B1] 100 mg PO DAILYCM #30 tab Primary Care Physician: Celina Mandujano NP-C [Primary Care Provider] - Please follow up with your Primary Care Physician in: within 1-2 weeks Disposition: Home Minutes spent on discharge:: 40 Patient Condition:: Stable Medical Necessity - Tobacco Use Smoking Status: Current every day smoker Tobacco Use: Cigarettes Meaningful Use Info Meaningful Use Diagnoses (Choose all that apply): None applicable Code Visit Inpatient E&M: 73780 Disch Hosp
[2018-05-19] MEDS: Haloperidol 5 MG Tablet 2.5 MG PO (12:06)
--- NOTE | 2018-05-19 12:54 | [facility] ---
I saw patient per Aria Ponce RN's request. Patient did not meet [facility] criteria. [facility] provided resources for patient and director social welfare.
[2018-05-19 14:00] VITALS: BP 122/80; PULSE 91; RESP 18; TEMP 36.6
--- NOTE | 2018-05-20 08:45 | CASEMGMT ---
Addendum entered by Nani Caldera 05/20/18 09:41: KEV faxed letter to Office of Probation for pt's risk officer, Cherelle Baumann, stating when pt was here in the hospital. Consent was faxed as well. DORYS Lopez, RADIO BOARD OPERATOR Original Note: SW spoke w/Nicole from [facility]. Pt was not able to go to [facility], due to some legal issues with [facility]. Nicole spoke w/pt, he ended up leaving, he was discharged. The other program pt would consider when this SW spoke w/him was [facility] and they did not call back until after pt left. Pt did have the opportunity to go to [facility], however pt declined this placement. KEV will fax a letter to pt's education officer today once the office opens and SW can attain the fax number. Pt did sign a consent for this yesterday, which will also be faxed to the education officer. DORYS Lopez, RADIO BOARD OPERATOR
== END 2018-05-19 14:47 | disposition home or self-care (01) | DRG 775 ==
LOC: ED 15:18 → MS2 16:41
PROVIDERS: Nurse Practitioner Family; Admitting Provider Family Medicine; Emergency Provider Emergency Medicine; Family Provider Nurse Practitioner Family; PCP Nurse Practitioner Family; Visit Provider Internal Medicine
DX: F10.239 Alcohol dependence with withdrawal, unspecified (principal); F12.90 Cannabis use, unspecified, uncomplicated; F17.210 Nicotine dependence, cigarettes, uncomplicated; B18.2 Chronic viral hepatitis C; R44.1 Visual hallucinations; G89.4 Chronic pain syndrome; J45.909 Unspecified asthma, uncomplicated; K63.9 Disease of intestine, unspecified; R76.11 Nonspecific reaction to tuberculin skin test without active tuberculosis; Y90.0 Blood alcohol level of less than 20 mg/100 ml
CPT/HCPCS: 80053; 80307; 80320; 83690; 84443; 85025; 93005; 99282; J7030; A4216; G0480; J2405

== ENCOUNTER 2018-05-21 19:21 | Emergency (ER) | payer MEDICAID, SELFPAY ==
[2018-05-17 17:15] VITALS: BMI 26.7
[2018-05-21 19:24] VITALS: BP 147/106; PULSE 124; RESP 18; TEMP 36.8; O2SAT 97; BMI 28.3
--- NOTE | 2018-05-21 19:33 | EKG12_ITS ---
Test Reason : ANXIETY Blood Pressure : / mmHG Vent. Rate : 101 BPM Atrial Rate : 101 BPM P-R Int : 128 ms QRS Dur : 088 ms QT Int : 326 ms P-R-T Axes : 053 043 020 degrees QTc Int : 422 ms Sinus tachycardia Otherwise normal ECG Confirmed by THEE DOMINGUEZ, ADRIAN ([id number]), assistant film editor MOUNA CAVAZOS ([id number]) on 05/24/2018 4:54:46 PM Referred By: ANABELLA Confirmed By:ADRAIN KINGSTON MD
--- NOTE | 2018-05-21 19:39 | ED.DCSUM_ITS ---
- ER Visit Summary Date of Service: 05/21/18 Chief Complaint: Anxiety History of Present Illness: The patient is a 37 M presents to the emergency department feeling anxious and unwell. The patient was recently hospitalized for alcohol detox. He was discharged 2 days ago. He states his been sober for 8 days. He states he just does not feel well. He states he felt very restless and mildly nauseated. He states he is also just felt generally weak. When he was in the hospital, he was started on new antipsychotics, but he states that he is not been taking them because he did not like with him in feel. He denies any fevers or chills. He denies any cough. He said no abdominal pain. He denies any drug use. He denies being suicidal homicidal. Physical Examination: Vital signs reviewed General: Well-nourished, well-developed Head: Normocephalic, atraumatic Eyes: Pupils equal and reactive, extraocular muscles intact Neck, supple, no lymphadenopathy Heart: Regular rate and rhythm Respiratory: No distress, clear bilaterally Abdomen: Soft, nontender, nondistended, no peritoneal signs Back: Nontender Extremities: Nontender, no edema, no cords Skin: Normal color no rash Neuro: Alert and oriented, no focal or lateralizing deficits Test Results: [] Emergency Department Course and Treatment: Patient is not having any new hallucinations or delusions. He has maintained his sobriety. He states he just feels jittery and unwell. He was mildly tachycardic on arrival. Patient was given IV fluids. Screening labs were obtained. He has minimal elevation of his LFTs, but this is a chronic finding for him as he does have history of alcohol abuse and hepatitis C. Patient was given Ativan and Zofran. He was also given Tylenol. On reevaluation, he is resting much more comfortably. His tox screen was positive for methamphetamines, MDMA, and benzodiazepines. When I asked the patient about this, he states that he just smokes marijuana. I do feel that his drug abuse is was giving him his symptoms. He is not suicidal. Is not homicidal. I do feel that he is safe for outpatient therapy. He was counseled to abstain from drugs. He will be discharged home. Treatment Plan: [] Disposition: Discharge Impression: 1. Drug abuse This note was generated with [employer] dictation software. It may contain incorrect words, spelling, and punctuation that were not noted in review of the chart prior to signing ED Disposition - Plan for ED Patient: Instructions: ED Drug Abuse General Referrals: Celina Mandujano NP-C [Primary Care Provider] -
[2018-05-21] MEDS: 0.9% Normal Saline 1,000 ML 1000 ML IV (19:48)
[2018-05-21 19:54] LABS: Absolute Lymphocyte Count 1.49 X10^3/ul (0.83-4.51); Absolute Neutrophil Count 5.1 X10^3/uL (2.0-7.7); Basophil# 0.04 X10^3/uL; Basophil% 0.5 % (0-1); Eosinophil# 0.18 X10^3/uL; Eosinophils% 2.4 % (0-5); Hematocrit 44.3 % (40-54); Hemoglobin 15.3 g/dl (13.0-16.5); Lymphocyte # 1.49 X10^3/ul (4.0); Lymphocyte % 19.6 % (19-41); Mean Corp Hgb Conc 34.5 g/gl (32-36); Mean Corpuscular Hgb 32.1 pg (27.0-32.0); Mean Corpuscular Volume 93.1 fL (80-94); Mean Platelet Vol. 8.6 fl (6.2-12.0); Monocyte# 0.82 X10^3/uL; Monocyte% 10.8 % (0-10); Neutrophil # 5.07 X10^3/uL (2.7-7.7); Neutrophil % 66.6 % (47-70); Platelet Count 147 K/mm3 (150-450); RBC Distribution Width CV 12.8 % (11.6-14.6); RBC Distribution Width SD 43.5 fl (35.1-43.9); Red Blood Count 4.76 M/mm3 (4.6-6.2); White Blood Count 7.6 K/mm3 (4.4-11.0)
[2018-05-21 19:56] LABS: POSITIVE COUNT NO; POSITIVE DIFFERENTIAL NO; POSITIVE MORPHOLOGY NO
[2018-05-21 20:11] LABS: Albumin, Serum 4.4 g/dL (3.2-5.0); BUN 11 mg/dL (7-18); BUN/Creat Ratio 15.4 RATIO (10-20); Creatinine, Serum 0.71 mg/dL (0.70-1.30); EST Glomerular Filtration Rate 131 mL/min (>60); Est Glom Filt Rate - Afr Amer 159 mL/min (>60); Estimated Creatinine Clearance 119.28 ml/min; Glucose 107 mg/dL (74-106); Protein, Total 8.2 g/dL (6.4-8.2)
[2018-05-21 20:12] LABS: ALB/GLOB Ratio 1.2 RATIO (0.9-2.4); AST(SGOT) 55 U/L (15-37); Alanine Aminotransfer ALT/SGPT 106 U/L (16-61); Alkaline Phosphatase 58 U/L (45-117); Anion Gap 7 (5-15); Calcium,Total 8.9 mg/dL (8.5-10.1); Chloride 106 mmol/L (98-107); Globulin 3.8 g/dL (2.2-4.2); Sodium Level 139 mmol/L (136-145)
[2018-05-21] MEDS: Ondansetron 4 MG/2 ML Vial IV (20:46)
[2018-05-21] MEDS: LORazepam 2 MG/ML Syringe 1 MG IV (20:46)
[2018-05-21 21:10] LABS: Amphetamine Urine VISTA POSITIVE (<1000 ng/mL); Barbiturate Urine VISTA NEGATIVE (< 200 ng/mL); Benzodiazepine Urine VISTA POSITIVE (< 200 ng/mL); Cocaine Urine VISTA NEGATIVE (< 300 ng/mL); Ecstacy Urine VISTA POSITIVE (< 500 ng/mL); Methadone Urine VISTA NEGATIVE (< 300 ng/mL); PCP Urine VISTA NEGATIVE (< 25 ng/mL); THC Urine VISTA POSITIVE (< 50 ng/mL); Vista UDS pH Range 6
[2018-05-21] MEDS: Acetaminophen 500 MG Tablet 1000 MG PO (21:22)
[2018-05-21 21:24] VITALS: BP 145/101; PULSE 97; RESP 18; O2SAT 98
--- NOTE | 2018-05-21 21:34 | ED.RN ---
PATIENT'S FIANCE CAME TO GET HIM AND WAS ANGRY THAT WE WERE SENDING HIM HOME HE SHOULD OF NEVER BEEN DISCHARGED FROM [facility] BECAUSE HE WAS THIS WAY SINCE THEN. I GOT DR. KYLE AND HAD HIM SPEAK TO HER. DR. KYLE EXPLAINED TO BOTH OF THEM THAT [facility] IS A MEDICAL MGMT FOR DETOX SYMPTOMS NOT A INPATIENT DETOX FACILITY. HIS LABS WITH OK TO BE DISCHARGED AND HE HAD METH IN HIS SYSTEM. I TOLD HIS FIANCE IF HE NEEDS CONTINUED DETOX TREATMENT THAT HE NEEDS TO SPEAK TO HIS [address] COUNSELOR TO ARRANGE INPATIENT DETOX TREATMENT. I ASKED HIM MULTIPLE TIMES IF HE WOULD WANT TO SPEAK TO A COUNSELOR ABHIJIT AND HE DENIED AT THIS TIME. DISCHARGED HOME WITH JAYLEN.
[2018-05-21 21:37] VITALS: BP 145/101; PULSE 97; RESP 18; O2SAT 98
== END 2018-05-21 21:38 | disposition home or self-care (01) ==
LOC: ED 19:42
PROVIDERS: Emergency Provider Emergency Medicine; Family Provider Nurse Practitioner Family; PCP Nurse Practitioner Family
DX: F11.90 Opioid use, unspecified, uncomplicated (principal); F12.90 Cannabis use, unspecified, uncomplicated; Z86.19 Personal history of other infectious and parasitic diseases
CPT/HCPCS: 80053; 80307; 80320; 85025; 93005; 96361; 96374; 96375; 99283; J7030; A4216; G0480; J2405

== ENCOUNTER 2018-07-06 12:59 | Emergency (ER) | payer MEDICAID, SELFPAY ==
[2018-07-06 13:02] VITALS: BP 148/79; PULSE 104; RESP 16; TEMP 36.7; O2SAT 97; BMI 27.4
[2018-07-06] MEDS: LORazepam 1 MG Tablet PO (13:54)
[2018-07-06 14:03] VITALS: PULSE 16
[2018-07-06 14:06] LABS: Absolute Lymphocyte Count 1.34 X10^3/ul (0.83-4.51); Absolute Neutrophil Count 7.2 X10^3/uL (2.0-7.7); Basophil# 0.03 X10^3/uL; Basophil% 0.3 % (0-1); Eosinophil# 0.09 X10^3/uL; Hematocrit 40.6 % (40-54); Hemoglobin 14.3 g/dl (13.0-16.5); Lymphocyte # 1.34 X10^3/ul (4.0); Lymphocyte % 14.4 % (19-41); Mean Corp Hgb Conc 35.2 g/gl (32-36); Mean Corpuscular Hgb 32.2 pg (27.0-32.0); Mean Corpuscular Volume 91.4 fL (80-94); Monocyte# 0.64 X10^3/uL; Monocyte% 6.9 % (0-10); Neutrophil # 7.21 X10^3/uL (2.7-7.7); Neutrophil % 77.2 % (47-70); Platelet Count 125 K/mm3 (150-450); RBC Distribution Width CV 13.1 % (11.6-14.6); RBC Distribution Width SD 43.5 fl (35.1-43.9); Red Blood Count 4.44 M/mm3 (4.6-6.2); White Blood Count 9.3 K/mm3 (4.4-11.0)
[2018-07-06 14:07] LABS: POSITIVE COUNT NO; POSITIVE DIFFERENTIAL NO; POSITIVE MORPHOLOGY NO
[2018-07-06 14:12] LABS: Amphetamine Urine VISTA NEGATIVE (<1000 ng/mL); Barbiturate Urine VISTA NEGATIVE (< 200 ng/mL); Benzodiazepine Urine VISTA NEGATIVE (< 200 ng/mL); Cocaine Urine VISTA NEGATIVE (< 300 ng/mL); Ecstacy Urine VISTA NEGATIVE (< 500 ng/mL); Methadone Urine VISTA NEGATIVE (< 300 ng/mL); PCP Urine VISTA NEGATIVE (< 25 ng/mL); THC Urine VISTA NEGATIVE (< 50 ng/mL); Vista UDS pH Range 6
[2018-07-06 14:14] LABS: ALB/GLOB Ratio 1.2 RATIO (0.9-2.4); AST(SGOT) 65 U/L (15-37); Alanine Aminotransfer ALT/SGPT 127 U/L (16-61); Albumin, Serum 4.1 g/dL (3.2-5.0); Alkaline Phosphatase 52 U/L (45-117); Anion Gap 4 (5-15); BUN 12 mg/dL (7-18); BUN/Creat Ratio 14.8 RATIO (10-20); Calcium,Total 8.8 mg/dL (8.5-10.1); Chloride 107 mmol/L (98-107); Creatinine, Serum 0.81 mg/dL (0.70-1.30); EST Glomerular Filtration Rate 113 mL/min (>60); Est Glom Filt Rate - Afr Amer 137 mL/min (>60); Estimated Creatinine Clearance 103.54 ml/min; Globulin 3.5 g/dL (2.2-4.2); Glucose 120 mg/dL (74-106); Potassium 3.8 mmol/L (3.5-5.1); Protein, Total 7.6 g/dL (6.4-8.2); Sodium Level 141 mmol/L (136-145)
--- NOTE | 2018-07-06 14:30 | ED.VISSUMM ---
- ER Visit Summary Date of Service: 07/06/18 Chief Complaint: Suicidal thoughts History of Present Illness: The patient is a 38 M who was brought in by police for suicidal thoughts and threats of overdose. He was pink slip by police. Patient says he has a history of alcoholism and hepatitis C. He was jailed last night for outstanding warrants. He was released this morning. He had planning to go to rehab, but because of his imprisonment, he lost his bed. He was planning to go to a penitentiary today because he is currently homeless, but his belongings were not at the penitentiary, they were still at the police department. He had a panic attack. He told people including police that he was suicidal. He wanted to overdose. He says he has been having symptoms of suicidal thoughts over the past month. He has a history of major depressive disorder and panic attacks. Physical Examination: Afebrile and vital signs are unremarkable. Patient is alert and oriented. Depressed mood. Flat affect. Suicidal thoughts positive. Heart regular rate and rhythm. Lungs clear. Abdomen soft and nontender. Skin appears normal in color without jaundice or pallor. Test Results: Platelets 125, glucose 120, ALT 127, AST 65. These values are stable secondary to his chronic disease. Tox screen was negative. Alcohol is pending. Emergency Department Course and Treatment: Patient was pink slipped by police. He had suicide precautions. Medical clearance testing was performed. His labs appear stable. He was treated with Ativan p.o. for anxiety and panic. Patient did not require any other medications. He was stable during his stay. Crisis contacted to evaluate the patient. He is medically cleared for transfer to a psychiatric ability for inpatient treatment. Treatment Plan: As above Disposition: Pending crisis evaluation Impression: 1. Suicidal ideation 2. Panic This note was generated with [employer] software. It may contain incorrect words, spelling, and punctuation that were not noted in review of the chart prior to signing ED Disposition - Plan for ED Patient: Referrals: Celina Mandujano NP-C [Primary Care Provider] -
--- NOTE | 2018-07-06 14:31 | CM.ED ---
SOCIAL WORK NOTE PATIENT SENT IN BY [employer] WITH CRISIS. PATIENT FROM THE [employer]. PATIENT PINK SLIPPED BY POLICE. CRISIS TO EVALUATE FOR PLACEMENT. SIVA MONTES, PAYROLL ACCOUNTING MANAGER, SKATE MAKER.
--- NOTE | 2018-07-06 14:33 | ED.DCSUM_ITS ---
- ER Visit Summary Date of Service: 07/06/18 Chief Complaint: Suicidal thoughts History of Present Illness: The patient is a 38 M who was brought in by police for suicidal thoughts and threats of overdose. He was pink slip by police. Patient says he has a history of alcoholism and hepatitis C. He was jailed last night for outstanding warrants. He was released this morning. He had planning to go to rehab, but because of his imprisonment, he lost his bed. He was planning to go to a [facility] today because he is currently homeless, but his belongings were not at the [facility]pc, they were still at the police department. He had a panic attack. He told people including police that he was suicidal. Luanne nguyen wanted to overdose. He says he has been having symptoms of suicidal thoughts over the past month. He has a history of major depressive disorder and panic attacks. Physical Examination: Afebrile and vital signs are unremarkable. Patient is alert and oriented. Depressed mood. Flat affect. Suicidal thoughts positive. Heart regular rate and rhythm. Lungs clear. Abdomen soft and nontender. Skin appears normal in color without jaundice or pallor. Test Results: Platelets 125, glucose 120, ALT 127, AST 65. These values are stable secondary to his chronic disease. Tox screen was negative. Alcohol is pending. Emergency Department Course and Treatment: Patient was pink slipped by police. He had suicide precautions. Medical clearance testing was performed. His labs appear stable. He was treated with Ativan p.o. for anxiety and panic. Patient did not require any other medications. He was stable during his stay. Crisis contacted to evaluate the patient. He is medically cleared for transfer to a psychiatric ability for inpatient treatment. Treatment Plan: As above Disposition: Pending crisis evaluation Impression: 1. Suicidal ideation 2. Panic This note was generated with [id number] software. It may contain incorrect words, spelling, and punctuation that were not noted in review of the chart prior to signing ED Disposition - Plan for ED Patient: Referrals: Celina Mandujano NP-C [Primary Care Provider] -
[2018-07-06 14:47] LABS: Alcohol, Blood (Medical)-Serum < 3.0 mg/dL
[2018-07-06 15:07] VITALS: RESP 16
[2018-07-06 16:23] VITALS: PULSE 76; RESP 18; O2SAT 99
[2018-07-06] MEDS: Gabapentin 600 MG Tablet PO (17:18)
[2018-07-06] MEDS: busPIRone 5 MG Tablet 20 MG PO (17:18)
--- NOTE | 2018-07-06 17:19 | CM.ED ---
SOCIAL WORK NOTE BOILERMAKER WELDER IN WITH PATIENT AT THIS TIME. SIVA MONTES, CONTROL ROOM AGENT, REGISTERED MIDWIFE.
[2018-07-06] MEDS: Propranolol 10 MG Tablet 30 MG PO (17:21)
[2018-07-06 18:11] VITALS: BP 148/104; PULSE 86; RESP 17; O2SAT 99
--- NOTE | 2018-07-06 19:00 | ED.DEP ---
ED Disposition - Plan for ED Patient: Disposition: Home or Assisted Living Instructions: ED Drug Abuse General Referrals: Celina Mandujano NP-C [Primary Care Provider] - As soon as possible [facility] [STAFF PHYSICIAN] - As soon as possible
[2018-07-06 19:05] VITALS: BP 148/104; PULSE 84; RESP 14; RESP 18; O2SAT 99
== END 2018-07-06 19:06 | disposition home or self-care (01) ==
PROVIDERS: Emergency Medicine; Emergency Provider Emergency Medicine; Family Provider Nurse Practitioner Family; PCP Nurse Practitioner Family
DX: R45.851 Suicidal ideations (principal); F41.0 Panic disorder [episodic paroxysmal anxiety]; F32.9 Major depressive disorder, single episode, unspecified; F41.9 Anxiety disorder, unspecified; Z72.0 Tobacco use; Z59.0 Homelessness; F10.21 Alcohol dependence, in remission; Z86.19 Personal history of other infectious and parasitic diseases
CPT/HCPCS: 80053; 80307; 80320; 85025; 99284; G0480

== ENCOUNTER 2018-08-25 11:57 | Emergency (ER) | payer MEDICAID, SELFPAY ==
[2018-08-25 11:58] VITALS: BP 140/97; PULSE 144; RESP 16; TEMP 36.3; O2SAT 97; BMI 27.4
--- NOTE | 2018-08-25 12:08 | CT_ITS ---
STUDY: CT ABDOMEN AND PELVIS WITHOUT CONTRAST REASON FOR EXAM: Male, 38 years old. Five-day history of abdominal pain. Patient has a history of cirrhosis. RADIATION DOSAGE (If Supplied By Facility): CTDIvol = ( 10.27 ) mGy, DLP = ( 534.76 ) mGycm TECHNIQUE: Transaxial images were obtained from the dome of the diaphragm to the symphysis pubis without oral contrast, and without intravenous contrast. Sagittal and coronal images were reconstructed. Individualized dose optimization techniques were used for this CT. COMPARISON: Comparison is made with prior study dated December 05, 2017. FINDINGS: Mild increased linear markings at the right lung base suggestive of atelectasis. The visualized portions of the heart are within normal limits. There is decreased attenuation of the liver consistent with steatosis. Cardiomegaly. Normal gallbladder and extrahepatic biliary system. There is moderate splenomegaly. Scattered calcified splenic granulomas. Normal pancreas. Normal bilateral adrenal glands. Normal right kidney. Normal left kidney. Normal visualized stomach. Normal small intestine. Normal colon. The appendix is visualized and appears normal. Normal abdominal aorta. Normal inferior vena cava. Normal retroperitoneum. Normal urinary bladder. There are prostatic calcifications. Normal abdominal wall. Normal osseous structures. CT/Abdomen/Pelvis without Cont IMPRESSION: Hepatosplenomegaly. Fatty infiltration of the liver. Electronically Signed: Leonel Liu, at 13:27 EDT , Service support ,
--- NOTE | 2018-08-25 12:10 | ED.VISSUMM ---
- ER Visit Summary Date of Service: 08/25/18 Chief Complaint: Abdominal pain History of Present Illness: The patient is a 38 M who presents the emergency department with 5 days of upper abdominal pain. He describes pressure and pain in the upper quadrants. Notes a pinching sensation that waxes and wanes behind his umbilicus. He has had no bowel movement for 5 days. States he has been drinking water but not eating as well. Denies any fevers. He states his last alcoholic drink was about 56 days ago. He is a pack and half a day smoker. He has had a ventral hernia repaired 3 times and wonders if this is related to it. Physical Examination: Afebrile vital signs are stable Gen: Well-nourished well-developed Head: Normocephalic atraumatic Eyes: Perrl EOMI ENT: TMs clear no rhinorrhea moist mucous membranes Neck: Supple no lymphadenopathy no JVD nontender CVS: Regular rate tachycardic rhythm no murmurs normal S1-S2 Respiratory: No distress clear to auscultation bilaterally chest nontender Abdomen: Soft tender in the upper quadrants no rebound nondistended normal bowel sounds no masses Back: Nontender Extremity: Nontender no edema Skin: Normal color no rash Neuro: alert orientated ?3 CN II-XII intact normal strength sensation Psych: Normal affect normal mood Test Results: CBC CMP lipase essentially negative. Tox positive for amphetamines methamphetamines and cannabinoids. CT of the abdomen pelvis without contrast does not demonstrate any small bowel obstruction or inflammatory changes. Emergency Department Course and Treatment: Patient refused Bentyl but did receive IV fluids. His heart rate is around 102. At this point I think we need to fix his constipation. I do not have an etiology for this sharp pinching pain that he states he has. He gets very angry when I talk about surgical referral because he maintains this pain is something to do with his hernia. He yells at me but I informed him that I will be more than happy to refer him to surgery and write him some medication to help him have a bowel movements. He states he does not have any money to take stool softeners that is why he has not tried anything. Patient will be discharged. Impression: 1. Acute abdominal pain 2. Constipation This note was generated with [employer] dictation software. It may contain incorrect words, spelling, and punctuation that were not noted in review of the chart prior to signing ED Disposition - Plan for ED Patient: Disposition: Home or Assisted Living Instructions: ED Constipation, ED Abdominal Pain Unkn Cause Male Prescriptions: Magnesium Citrate [Citrate Of Magnesia] 300 ml PO X1 #2 bottle Referrals: Kallie Farias MD [STAFF PHYSICIAN] - As Needed (FOR SURGICAL EVALUATION)
[2018-08-25] MEDS: 0.9% Normal Saline 1,000 ML 999 ML IV ×2 (12:26→13:40)
[2018-08-25] MEDS: Ondansetron 4 MG/2 ML Vial IV (12:26)
[2018-08-25 12:44] LABS: Absolute Lymphocyte Count 0.98 X10^3/ul (0.83-4.51); Absolute Neutrophil Count 3.7 X10^3/uL (2.0-7.7); Basophil# 0.02 X10^3/uL; Basophil% 0.4 % (0-1); Eosinophil# 0.16 X10^3/uL; Eosinophils% 2.9 % (0-5); Hematocrit 39.6 % (40-54); Hemoglobin 14.3 g/dl (13.0-16.5); Lymphocyte # 0.98 X10^3/ul (4.0); Lymphocyte % 17.7 % (19-41); Mean Corp Hgb Conc 36.1 g/gl (32-36); Mean Corpuscular Hgb 31.5 pg (27.0-32.0); Mean Corpuscular Volume 87.2 fL (80-94); Mean Platelet Vol. 8.2 fl (6.2-12.0); Monocyte# 0.71 X10^3/uL; Monocyte% 12.8 % (0-10); Neutrophil # 3.66 X10^3/uL (2.7-7.7); POSITIVE COUNT NO; POSITIVE DIFFERENTIAL NO; POSITIVE MORPHOLOGY NO; Platelet Count 141 K/mm3 (150-450); RBC Distribution Width CV 12.8 % (11.6-14.6); RBC Distribution Width SD 39.3 fl (35.1-43.9); Red Blood Count 4.54 M/mm3 (4.6-6.2); White Blood Count 5.5 K/mm3 (4.4-11.0)
[2018-08-25 12:58] LABS: AST(SGOT) 56 U/L (15-37); Alanine Aminotransfer ALT/SGPT 121 U/L (16-61); Albumin, Serum 3.9 g/dL (3.2-5.0); Alkaline Phosphatase 44 U/L (45-117); Anion Gap 10 (5-15); BUN 6 mg/dL (7-18); Bilirubin, Direct 0.27 mg/dL (0.00-0.30); Calcium,Total 8.9 mg/dL (8.5-10.1); Chloride 103 mmol/L (98-107); Creatinine, Serum 0.66 mg/dL (0.70-1.30); EST Glomerular Filtration Rate 143 mL/min (>60); Est Glom Filt Rate - Afr Amer 173 mL/min (>60); Estimated Creatinine Clearance 127.07 ml/min; Globulin 3.5 g/dL (2.2-4.2); Glucose 81 mg/dL (74-106); Lipase 68 U/L (73-393); Potassium 3.6 mmol/L (3.5-5.1); Protein, Total 7.4 g/dL (6.4-8.2); Sodium Level 140 mmol/L (136-145)
[2018-08-25 13:41] VITALS: BP 112/87; PULSE 102; RESP 18; O2SAT 99
[2018-08-25 14:05] LABS: Amphetamine Urine VISTA POSITIVE (<1000 ng/mL); Barbiturate Urine VISTA NEGATIVE (< 200 ng/mL); Benzodiazepine Urine VISTA NEGATIVE (< 200 ng/mL); Cocaine Urine VISTA NEGATIVE (< 300 ng/mL); Ecstacy Urine VISTA POSITIVE (< 500 ng/mL); Methadone Urine VISTA NEGATIVE (< 300 ng/mL); PCP Urine VISTA NEGATIVE (< 25 ng/mL); THC Urine VISTA POSITIVE (< 50 ng/mL); Vista UDS pH Range 6
[2018-08-25 14:46] VITALS: BP 119/74; PULSE 84; RESP 18; O2SAT 99
== END 2018-08-25 14:48 | disposition home or self-care (01) ==
PROVIDERS: Emergency Provider Emergency Medicine; Family Provider Nurse Practitioner Family; PCP Nurse Practitioner Family
DX: R10.12 Left upper quadrant pain (principal); R10.11 Right upper quadrant pain; K59.00 Constipation, unspecified; R11.2 Nausea with vomiting, unspecified; F17.210 Nicotine dependence, cigarettes, uncomplicated
CPT/HCPCS: 74176; 80048; 80076; 80307; 83690; 85025; 96361; 96372; 96374; 99283; J7030; J2405

== ENCOUNTER 2018-10-22 06:54 | Emergency (ER) | payer MEDICAID, SELFPAY ==
[2018-10-20 20:17] VITALS: BMI 28.6
[2018-10-22 06:55] VITALS: BP 128/104; PULSE 120; RESP 20; TEMP 37.3; O2SAT 97; BMI 27.4
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
--- NOTE | 2018-10-22 07:33 | DCINST.ED_ITS ---
ED Disposition - Plan for ED Patient: Disposition: Home or Assisted Living Instructions: Dental Abscess Prescriptions: Penicillin Vk [Pen-Vee K , V-Cillin K] 500 mg PO 4X/DAY #40 tab Prescription Printed Referrals: Celina Mandujano NP-C [NON-STAFF] - As soon as possible Additional Instructions: Ice to your face to decrease swelling. Warm salt water gargling for her mouth. Tylenol and Motrin for pain. Follow-up with the [facility] dentist as soon as possible. Penicillin 1 pill 4 times a day for 10 days until finished. Return if any trouble breathing, swallowing or swelling getting worse instead of better.
[2018-10-22] MEDS: Penicillin Vk 250 MG Tablet 500 MG PO (07:45)
[2018-10-22] MEDS: Ibuprofen 600 MG Tablet PO (07:59)
== END 2018-10-22 08:00 | disposition home or self-care (01) ==
PROVIDERS: Emergency Provider Emergency Medicine
DX: K04.7 Periapical abscess without sinus (principal); S00.10XA Contusion of unspecified eyelid and periocular area, initial encounter; B19.20 Unspecified viral hepatitis C without hepatic coma; F10.10 Alcohol abuse, uncomplicated; Z72.0 Tobacco use; Y09 Assault by unspecified means; Y90.9 Presence of alcohol in blood, level not specified
CPT/HCPCS: 99285

== ENCOUNTER 2018-10-25 22:17 | Inpatient (IN) | payer MEDICAID, SELFPAY ==
[2018-10-25 22:19] VITALS: BP 141/83; PULSE 100; RESP 18; TEMP 36.4; O2SAT 97; BMI 28.5
[2018-10-25] MEDS: Ketorolac 30 MG/ML Syringe IV (23:27)
[2018-10-25 23:32] LABS: Absolute Lymphocyte Count 1.79 X10^3/uL (0.83-4.51); Absolute Neutrophil Count 3.3 X10^3/uL (2.0-7.7); Basophil# 0.04 X10^3/uL; Basophil% 0.7 % (0-1); Eosinophil# 0.29 X10^3/uL; Eosinophils% 4.7 % (0-5); Hematocrit 37.9 % (40-54); Hemoglobin 13.4 g/dL (13.0-16.5); Lymphocyte # 1.79 X10^3/ul (4.0); Lymphocyte % 29.2 % (19-41); Mean Corp Hgb Conc 35.4 g/dL (32-36); Mean Corpuscular Volume 90.5 fL (80-94); Mean Platelet Vol. 8.4 fl (6.2-12.0); Monocyte# 0.68 X10^3/uL; Monocyte% 11.1 % (0-10); NRBC Flagged by Analyzer 0 % (0-5); Neutrophil # 3.32 X10^3/uL (2.7-7.7); Neutrophil % 54.1 % (47-70); Platelet Count 155 K/mm3 (150-450); RBC Distribution Width CV 13.3 % (11.6-14.6); RBC Distribution Width SD 43.6 fl (35.1-43.9); Red Blood Count 4.19 M/mm3 (4.6-6.2); White Blood Count 6.1 K/mm3 (4.4-11.0)
[2018-10-25] MEDS: MethylPREDNISolone 125 MG/2 ML Vial IV (23:45)
[2018-10-25] MEDS: DiphenhydrAMINE 50 MG/ML Syringe 25 MG IV (23:46)
[2018-10-25 23:50] LABS: Anion Gap 9 (5-15); BUN 12 mg/dL (7-18); BUN/Creat Ratio 17.1 RATIO (10-20); Calcium,Total 8.3 mg/dL (8.5-10.1); Chloride 109 mmol/L (98-107); EST Glomerular Filtration Rate 134 mL/min (>60); Est Glom Filt Rate - Afr Amer 162 mL/min (>60); Estimated Creatinine Clearance 119.81 ml/min; Glucose 92 mg/dL (74-106); Potassium 3.7 mmol/L (3.5-5.1); Sodium Level 143 mmol/L (136-145)
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
[2018-10-26 02:33] VITALS: BMI 27.9
[2018-10-26 02:39] VITALS: BP 127/85; PULSE 94; RESP 14; TEMP 36.3; O2SAT 97
[2018-10-26] MEDS: oxyCODONE 5 MG Tablet PO ×5 (02:54→20:07)
[2018-10-26] MEDS: Ibuprofen 400 MG Tablet PO ×5 (02:54→20:07)
[2018-10-26] MEDS: chlordiazePOXIDE 25 MG Capsule 50 MG PO ×4 (03:18→21:25)
[2018-10-26 03:35] LABS: AST(SGOT) 76 U/L (15-37); Alanine Aminotransfer ALT/SGPT 127 U/L (16-61); Albumin, Serum 3.8 g/dL (3.2-5.0); Alkaline Phosphatase 60 U/L (45-117); Bilirubin, Direct 0.19 mg/dL (0.00-0.30); GGTP 103 U/L (15-85); Protein, Total 6.8 g/dL (6.4-8.2)
[2018-10-26 03:48] LABS: Alcohol, Blood (Medical)-Serum < 3.0 mg/dL
[2018-10-26] MEDS: 0.9% Normal Saline 1,000 ML 100 ML IV (04:15)
[2018-10-26 05:38] LABS: Absolute Lymphocyte Count 0.78 X10^3/uL (0.83-4.51); Absolute Neutrophil Count 4.3 X10^3/uL (2.0-7.7); Basophil# 0.02 X10^3/uL; Basophil% 0.4 % (0-1); Eosinophil# 0.03 X10^3/uL; Eosinophils% 0.6 % (0-5); Hematocrit 40.4 % (40-54); Lymphocyte # 0.78 X10^3/ul (4.0); Lymphocyte % 14.8 % (19-41); Mean Corp Hgb Conc 34.7 g/dL (32-36); Mean Corpuscular Hgb 31.5 pg (27.0-32.0); Mean Platelet Vol. 8.5 fl (6.2-12.0); Monocyte# 0.14 X10^3/uL; Monocyte% 2.7 % (0-10); NRBC Flagged by Analyzer 0 % (0-5); Neutrophil # 4.28 X10^3/uL (2.7-7.7); Neutrophil % 81.3 % (47-70); Platelet Count 156 K/mm3 (150-450); RBC Distribution Width CV 13.2 % (11.6-14.6); RBC Distribution Width SD 43.8 fl (35.1-43.9); Red Blood Count 4.44 M/mm3 (4.6-6.2); White Blood Count 5.3 K/mm3 (4.4-11.0)
[2018-10-26] MEDS: Methocarbamol 750 MG Tablet PO ×3 (07:39→22:07)
[2018-10-26] MEDS: hydrOXYzine PAM 25 MG Capsule 50 MG PO ×3 (07:39→22:07)
[2018-10-26] MEDS: Thiamine Hydrochloride 100 MG Tablet PO (07:40)
[2018-10-26] MEDS: Multivitamins,Therapeutic Tablet 1 TABLET PO (07:40)
[2018-10-26] MEDS: Folic Acid 1 MG Tablet PO (07:40)
[2018-10-26 07:46] VITALS: BP 105/69; PULSE 58; RESP 16; TEMP 36.3; O2SAT 100
[2018-10-26] MEDS: Morphine 2 MG/ML Syringe IV (08:51)
--- NOTE | 2018-10-26 10:33 | NURSING ---
warm compress place on face
--- NOTE | 2018-10-26 11:05 | CASEMGMT ---
Social Work Note Physician would like a [place] consult. KEV placed a call to Nicole with [facility] and provided consult. Nicole states she will see patient later this afternoon. Darshana Cobb HEALTH SAFETY ENGINEER, BOOKKEEPING CLERK
[2018-10-26 11:33] VITALS: BP 128/77; PULSE 72; RESP 16; TEMP 36.5; O2SAT 97
[2018-10-26 11:34] VITALS: BP 128/77; PULSE 72; RESP 16; TEMP 36.5; O2SAT 97
--- NOTE | 2018-10-26 12:40 | NEWVISION ---
Patient unwilling to participate it speaking to agencies today regarding AOD inpatient services stating that he's not really in the right frame of mind. [facility] provide a list of the follow agencies with phone numbers to patient at bedside. [facility] [phone], [facility] [phone], [facility] [phone], [facility] [phone].
[2018-10-26 13:50] LABS: M R Staph aureus DNA By PCR Negative (Negative); Probe Check PASS; Specimen Processing Control PASS
[2018-10-26 15:13] VITALS: BP 135/83; PULSE 92; RESP 16; TEMP 36.6; O2SAT 100
[2018-10-26] MEDS: Acetaminophen 500 MG Tablet 1000 MG PO (17:31)
[2018-10-26 20:09] VITALS: BP 123/71; PULSE 78; RESP 18; TEMP 36.3; O2SAT 97
[2018-10-26] MEDS: Famotidine 20 MG Tablet PO (21:27)
[2018-10-26] MEDS: traZODone 50 MG Tablet PO (22:07)
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
[2018-10-27] MEDS: chlordiazePOXIDE 25 MG Capsule 50 MG PO ×2 (05:21→14:30)
[2018-10-27] MEDS: Acetaminophen 500 MG Tablet 1000 MG PO (05:21)
[2018-10-27 05:24] VITALS: BP 108/74; PULSE 78; RESP 18; TEMP 36.4; O2SAT 99
--- NOTE | 2018-10-27 06:24 | PCM.PROGNOTE ---
Patient Problems: Active and Suspected Problems Left maxillary soft tissue mass, phlegmo (Acute) Left facial cellulitis (Acute) Subjective: Clindamycin day #3 All events of the past 24 hours of been reviewed. Afebrile since admission No tachycardia, blood pressure is well controlled He is 97 to 100% saturated on room air. White blood cell count on 10/25/2018 and 10/26/2018 was within normal limits. The percentage of neutrophils increased on 10/26 and this was secondary to receiving steroids prior to contrast given for CT head MRSA PCR was negative. - Physical Exam Vital Signs Temp Pulse Resp BP Pulse Ox 97.5 F L 78 18 108/74 99 10/27/18 05:24 10/27/18 05:24 10/27/18 05:24 10/27/18 05:24 10/27/18 05:24 Oxygen Delivery Method Room Air Weight: 163 lb 9.328 oz Body Mass Index (BMI) 27.9 Intake and Output for Last 24 Hours 10/25/18 10/26/18 10/27/18 23:59 23:59 23:59 Intake Total 1928 / 2398 770 / 770 Balance 1928 / 2398 770 / 770 Laboratory Tests Past 24 Hrs 10/26/18 09:00 MRSA (PCR) Negative Medical Necessity - Tobacco Use Smoking Status: Current every day smoker Assessment/Plan All Active Problems Left maxillary soft tissue mass, phlegmo (Acute) Left facial cellulitis (Acute)
--- NOTE | 2018-10-27 10:49 | CASEMGMT ---
Social Work Note SW followed up with pt in regards to discharge plans. SW met with pt, introduced self and role at [facility]. Pt is alert and orientated x3. Pt states that he plans on going to [facility] in [place] on discharge. Pt states he has already been in contact with them and they have a bed available he is just waiting to get a confirmation if they are able to accept him. Pt states that he has a history of feelings of anxiousness, nervousness, and feelings of sadness. Pt states that he currently has these feelings. Pt denied any suicidal/homicidal thoughts/plans/ideations. Pt denied additional needs or concerns at this time. Plan: Pt to discharge to [facility] in [place] at discharge Darshana Cobb [employer]SEM[employer], [employer]OCIATE PROFESSOR [employer]
[2018-10-27] MEDS: oxyCODONE 5 MG Tablet PO ×2 (10:58→15:20)
[2018-10-27] MEDS: Ibuprofen 400 MG Tablet PO ×2 (10:58→15:20)
[2018-10-27 11:03] VITALS: BP 110/77; PULSE 68; RESP 16; TEMP 36.6; O2SAT 97
--- NOTE | 2018-10-27 14:40 | NURSING ---
pt argumentative with staff, yelling at times during conversation. states no one has been in here for 4 hours. i want my pain medication, you should have been in here and giving it to me. informed pt nurse was in around lunch time d/t coffee provided, pt continues to raise voice and yel at nurse- nurse informed said pt nurse is not going to argue with pt- updated on time meds were given and what is due- pt refusing any medications except his librium and demanding his iv be removed. pt states i want you to bring in my pain medication when it is due, i don't want to have to ask for it.' reminded pt of prn medication guidelines/administration and to call for nurse when pt feels he needs further pain medication. refusing to speak with nurse i don't want to talk to you, what i have to say won't be nice.
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
--- NOTE | 2018-11-03 10:46 | CASEMGMT ---
Discharge F/U call: 11/01/18: TC to patient on phone number listed in patient chart. Phone's phone temporarily not in service. 11/02/18: Received call from registration desk stating patient was asking to speak with a social professionals. Met patient in [facility]. Patient stats he was given resources while in the hospital last week but lost them. This SW provided patient with list of addiction resources. Patient states [facility] in [place] was holding a bed for him last week. Patient states he will be calling them now to ask if he can come today. Patient states he has a friend in the parking lot waiting for him and will transport patient to [facility] now for possible recovery placement. This SW provided contact information in the event that additional needs arise. DORYS Mackenzie
== END 2018-10-27 16:38 | disposition home or self-care (01) | DRG 57 ==
LOC: ED 23:11 → MS3 10-26 02:49
PROVIDERS: Admitting Provider Internal Medicine; Emergency Provider Emergency Medicine; Visit Provider Internal Medicine
DX: S06.0X9A Concussion with loss of consciousness of unspecified duration, initial encounter (principal); S00.531A Contusion of lip, initial encounter; B18.2 Chronic viral hepatitis C; G89.4 Chronic pain syndrome; J45.909 Unspecified asthma, uncomplicated; Y04.2XXA Assault by strike against or bumped into by another person, initial encounter; K04.7 Periapical abscess without sinus; F17.210 Nicotine dependence, cigarettes, uncomplicated; Z91.041 Radiographic dye allergy status; R76.11 Nonspecific reaction to tuberculin skin test without active tuberculosis; F19.10 Other psychoactive substance abuse, uncomplicated; Z59.0 Homelessness; Y90.0 Blood alcohol level of less than 20 mg/100 ml; Y93.9 Activity, unspecified; Y92.89 Other specified places as the place of occurrence of the external cause; Y99.9 Unspecified external cause status; R19.7 Diarrhea, unspecified; R74.0 Nonspecific elevation of levels of transaminase and lactic acid dehydrogenase [LDH]; F10.239 Alcohol dependence with withdrawal, unspecified
CPT/HCPCS: 36415; 70450; 70487; 80048; 80076; 80320; 82977; 85025; 87641; 92526; 92610; 99285; 99406; J7030; J7040; Q9967; A4216; G0480; J3490

== ENCOUNTER 2019-12-18 23:07 | Emergency (ER) | payer MEDICAID, SELFPAY ==
[2018-10-26 02:33] VITALS: BMI 27.9
[2019-12-18 23:08] VITALS: BP 110/70; PULSE 89; RESP 17; TEMP 36.9; O2SAT 98; BMI 28.8
--- NOTE | 2019-12-18 23:17 | ED.VIS.GEN ---
History of Present Illness Chief Complaint: Allergic Reaction Narrative: Patient presenting secondary to a possible allergic reaction. Patient has a history of prior allergic reactions to CT contrast dye. Patient reports that prior to arrival he ate a peach. He reports that he is eaten peaches in the past, but there was a pear sitting on top of this which he is never had in the past. Patient reports that he woke up with feelings of fullness in his hands, scratchiness in his throat, and swelling around his right eye. He denies any tongue or lip swelling. He did not take anything prior to arrival. He denies being short of breath. Review of systems otherwise negative. Past Medical History - Allergies and Home Meds Allergies/Adverse Reactions: Allergies Iodinated Contrast Media [CT] Allergy (Verified 12/18/19 23:08) Hives peach Allergy (Verified 12/18/19 23:08) Anaphylaxis [facility] - Past Medical History: None Surgical History: adenoidectomy, - - Ventral hernia repair x3 Lives: Spouse/ Significant Other Smoking Status: Current every day smoker Alcohol: None Drugs: None - Family History Paternal Family History: Reports: - - Denies cardiac history Maternal Family History: Reports: - - Denies cardiac history Review of Systems All systems negative except as indicated General: Denies: Chills, Fever, Sweats Eyes: Denies: Visual changes - bilaterally, Diplopia ENT: Reports: Sore throat, - - Right eye swelling Cardiovascular: Denies: Chest pain, Palpitations Respiratory: Denies: Dyspnea, Cough, Dyspnea on exertion Gastrointestinal: Denies: Abdominal pain, Nausea, Vomiting, Diarrhea, Melena, Hematochezia Genitourinary: Denies: Dysuria, Hematuria, Frequency Musculoskeletal: Denies: Back pain, Extremity Pain Skin: Denies: Rash, Wounds Neurological: Denies: Headache, Weakness, Numbness Psych: Reports: Anxiety Physical Exam Vital Signs/Narrative: Vital Signs Temp Pulse Resp BP Pulse Ox 12/18/19 23:08 98.5 F 89 17 110/70 98 Inital Vital Signs reviewed: Yes General: Well nourished, Well developed, No Acute Distress, - - Strong smell of tobacco Head: Normocephalic, Atraumatic Eyes: Perrl, EOMI ENT: Moist mucous membranes, No rhinorrhea, - - Oropharynx is clear and moist, no evidence of airway edema, tongue edema, or lip edema. There is swelling surrounding the patient's right eye. Neck: Supple, Nontender Cardiovascular: Regular rate, Regular rhythm, No murmurs Respiratory: No distress, CTA bilaterally, Chest nontender Abdomen: Soft, Nontender, Nondistended, Normal bowel sounds Back: Nontender, Normal Inspection Extremities: Nontender, No edema Skin: Normal color, No rash Neurological: Alert, Oriented x3, Cranial nerves II-XII grossly intact, Normal Strength, Normal Sensation Psychological: Normal affect, Normal Mood Diagnostic/Tx/Re-eval - Medical Decision Making Patient presented with concerns for an allergic reaction. He has a normal blood pressure normal oxygenation, does not appear to be in anaphylaxis and likewise does not have any evidence of angioedema. IV was established she was given Benadryl Solu-Medrol and Pepcid. He was placed on the cardiac cath lab manager. Multiple repeat evaluations of the patient showed no development of angioedema or anaphylaxis. Final reevaluation after the patient was here for 90 minutes at 0030 shows him to have significant resolution of the swelling to his right eye, stable vital signs, and improved symptomatology. This point I believe the patient is safe for discharge. Will be sent home with a course of prednisone. He was recommended caution with eating the fruits he was exposed to. Patient was discharged in stable condition. ED Disposition - Plan for ED Patient: Disposition: Home or Assisted Living Diagnosis: Allergic reaction Instructions: ED General Allergic Reactions Prescriptions: Prednisone [Deltasone] 40 mg PO DAILY #8 tab Prescription Printed [facility] - 1-2 Weeks
[2019-12-18] MEDS: MethylPREDNISolone 125 MG/2 ML Vial IV (23:19)
[2019-12-18] MEDS: DiphenhydrAMINE 50 MG/ML Syringe 25 MG IV (23:19)
[2019-12-18] MEDS: Famotidine 200 MG/20 ML MDV 20 MG in 0.9% Normal Saline (Pres. free 8 ML 300 MG IV (23:29)
[2019-12-18] MEDS: Ondansetron 4 MG/2 ML Vial IV (23:36)
[2019-12-19 00:59] VITALS: BP 124/71; PULSE 78; RESP 14; O2SAT 98
== END 2019-12-19 01:00 | disposition home or self-care (01) ==
PROVIDERS: Emergency Provider Emergency Medicine
DX: T78.40XA Allergy, unspecified, initial encounter (principal); F17.200 Nicotine dependence, unspecified, uncomplicated
CPT/HCPCS: 96374; 96375; 99284; A4216; J2405; J3490

== ENCOUNTER 2020-01-15 21:39 | Emergency (ER) | payer MEDICAID, SELFPAY ==
[2020-01-15 21:41] VITALS: BP 139/96; PULSE 75; RESP 18; TEMP 36.9; O2SAT 97; BMI 28.3
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
== END 2020-01-15 22:06 | disposition left against medical advice (07) ==
LOC: ED 01-16 01:33
PROVIDERS: Emergency Provider Emergency Medicine
DX: Z53.21 Procedure and treatment not carried out due to patient leaving prior to being seen by health care provider (principal)